=== PATIENT | female | born 1965 | race African-American/Black ===

== ENCOUNTER 2017-01-21 16:55 | Observation (INO) | payer OTHER ==
[2017-01-21 17:25] LABS: #Eosinphils 0.1 thou/uL (0.0-0.7); #Lymphocytes 2.8 thou/uL (1.20-3.40); #Monocytes 0.4 thou/uL (0.11-0.59); #Neutrophils 3.3 thou/uL (1.40-6.50); %Basophils 0.2 % (0.0-1.0); %Eosinophils 1.4 % (0.0-10.0); %Lymphocytes 42.3 % (21.0-51.0); %Monocytes 6.3 % (0.0-10.0); Mean Platelet Volume 7.7 fL (7.4-10.4); Red Blood Cell (RBC) Count 4.27 mill/uL (4.20-5.40); White Blood Cell (WBC) Count 6.7 thou/uL (4.8-10.8)
[2017-01-21 17:47] LABS: ALT (SGPT) 33 U/L (8-55); AST (SGOT) 19 U/L (5-34); Alkaline Phosphatase 92 U/L (40-150); Anion Gap 10 mmol/L (10-20); BUN (Urea Nitrogen) 22 mg/dL (9.8-20.1); Bilirubin, Total 0.2 mg/dL (0.2-1.2); CK (CPK) 124 U/L (29-168); Calc. Creatinine Clearance 0 mL/min (70-130); Calcium 9.7 mg/dL (7.8-10.44); Carbon Dioxide 21 mmol/L (22-29); Chloride 111 mmol/L (98-107); Estimated GFR-MDRD 82; Globulin 3.7 g/dL (2.4-3.5); Lipase 25 U/L (8-78)
[2017-01-21 17:52] LABS: Troponin I Less than 0.010 ng/mL (< 0.028)
[2017-01-21 18:02] LABS: PTT 38.9 SEC (22.9-36.1); Prothrombin Time 13.2 SEC (12.0-14.7)
[2017-01-21] MEDS ORDERED: Morphine 4 MG/ML Carpuject ONE (18:18)
[2017-01-21] MEDS ORDERED: Ondansetron HCl/PF 4 MG/2 ML Vial ONE (18:18)
--- NOTE | 2017-01-21 18:52 | RAD ---
FRONTAL VIEW CHEST 01/21/17 COMPARISON: 06/09/16 INDICATION: Chest pain. FINDINGS: There is patchy density of the lower lung zones bilaterally. Patient is rotated. There is accentuati on of the cardiomediastinal silhouette. There is minimal blunting at each costophrenic sulcus. The c hest is otherwise grossly stable. IMPRESSION: Findings to indicate mild degree of edema related to CHF. Trace pleural fluid not excluded. POS: [facility]
[2017-01-21 21:16] LABS: Troponin I Less than 0.010 ng/mL (< 0.028)
[2017-01-21] MEDS ORDERED: Acetaminophen 325 MG TAB PO PRN (22:00)
[2017-01-21] MEDS ORDERED: Ondansetron HCl/PF 4 MG/2 ML Vial IVP PRN (22:00)
[2017-01-21] MEDS ORDERED: Ondansetron ODT 4 MG TAB SL PRN (22:00)
[2017-01-21] MEDS ORDERED: HYDROcodone/Acetaminophen 5/325 mg Tablet PO PRN ×2 (22:00)
[2017-01-21 22:06] VITALS: BMI 42.4
[2017-01-22 00:02] LABS: Troponin I Less than 0.010 ng/mL (< 0.028)
[2017-01-22] MEDS ORDERED: ALPRAZolam 0.25 MG TAB PO PRN (11:34)
[2017-01-22] MEDS ORDERED: Ondansetron ODT 4 MG TAB PO PRN (11:34)
[2017-01-22] MEDS ORDERED: hydrALAZINE 20 MG/ML VIAL SLOW IVP PRN (11:34)
[2017-01-22] MEDS ORDERED: Acetaminophen 500 MG TAB PO PRN (11:34)
[2017-01-22] MEDS ORDERED: Cyclobenzaprine 10 MG TAB PO SCH (11:34)
[2017-01-22] MEDS ORDERED: Ondansetron HCl/PF 4 MG/2 ML Vial IVP PRN (11:34)
[2017-01-22] MEDS ORDERED: cloNIDine 0.1 MG TAB PO PRN (11:34)
[2017-01-22] MEDS ORDERED: traMADol HCl 50 MG TAB PO PRN (11:45)
[2017-01-22 12:21] VITALS: BP 123/71; TEMP 98.3
--- NOTE | 2017-01-22 12:35 | HP ---
DATE OF ADMISSION: 01/22/2017 PRIMARY CARE PHYSICIAN: Dr. Selvin Sewell. CHIEF COMPLAINT: Left upper chest wall pain. HISTORY OF PRESENT ILLNESS: This is a 51-year-old -[place] female, who presents to [facility] complaining of 1-2 day history of sharp left upper chest wall pain over he r pacemaker site. The patient states she underwent pacemaker placement in 2014 for second-degree he art block. The patient states she has had intermittent pain in the left upper chest wall over the p acemaker site since placement. Patient denies any fever, chills, fluctuance, drainage from the pace maker site. The patient denied any specific direct trauma, but states she has been sleeping on her left side mainly, as this is her most comfortable position and has noted pain in the shoulder and pa cemaker area. The patient states she has been compliant with her chronic medication regimen, but de nied specific fever, chills, increased cough, congestion, or recent pneumonia. Patient does admit t o some dyspnea on exertion and states she sleeps on approximately 8 pillows every night. The patien t denied any specific increase in lower extremity swelling, but has had some night sweats. The tyler ent states there is some radiation of the pain down her left arm into the hand when she experiences the pain, but denied any specific left arm edema or discoloration. Patient underwent cardiac cathet erization in 2014, prior to pacemaker insertion, showing essentially negative findings. In the [facility] room, the patient underwent general evaluation including chest imaging showing no acute proces s. Screening metabolic survey was essentially unrevealing with negative troponins x3 and a BNP of l ess than 10. The patient received IV morphine sulfate and Zofran and was referred to the observatio n unit. PAST MEDICAL HISTORY: 1. Second-degree atrioventricular block, status post pacemaker placement. 2. Hypertension. 3. Anxiety disorder. 4. Chronic obstructive pulmonary disease. 5. History of left-sided chest wall pain. 6. Diabetes mellitus type 2, insulin requiring. 7. Chronic back pain. 8. Seizure disorder. 9. Chronic headaches. 10. Depression. PAST SURGICAL HISTORY: 1. Status post pacemaker placement in 2014. 2. Status post hysterectomy. 3. Status post right wrist surgery. CURRENT MEDICATIONS: 1. Alprazolam 1 mg p.o. t.i.d. p.r.n. 2. Advair Diskus 1 puff inhaled b.i.d. 3. Humalog t.i.d. with meals. 4. Levemir 45 units subcutaneously b.i.d. 5. DuoNeb 3 mL nebulized q.6 hours p.r.n. 6. Cozaar 25 mg 1 tab p.o. daily. 7. Protonix 40 mg 1 tab p.o. daily. 8. Topamax 100 mg p.o. b.i.d. 9. Ambien 10 mg p.o. at bedtime. 10. Glucotrol 10 mg p.o. daily. ALLERGIES: 1. ASPIRIN causing nosebleeds. 2. CARBAMAZEPINE. 3. IBUPROFEN. 4. PROPOXYPHENE. FAMILY HISTORY: Positive for seizure disorder in her sister. SOCIAL HISTORY: The patient resides in the [facility]. Accompanied by her sister in the [facility]. Formerly used tobacco products. No alcohol or illicit drug use. REVIEW OF SYSTEMS: The following complete review of systems was negative, unless otherwise mentione d in the HPI or below: Constitutional: Weight loss or gain, ability to conduct usual activities. Skin: Rash, itching. Eyes: Double vision, pain. ENT/Mouth: Nose bleeding, neck stiffness, pain, tenderness. Cardiovascular: Palpitations, dyspnea on exertion, orthopnea. Respiratory: Shortne ss of breath, wheezing, cough, hemoptysis, fever or night sweats. Gastrointestinal: Poor appetite, abdominal pain, heartburn, nausea, vomiting, constipation, or diarrhea. Genitourinary: Urgency, f requency, dysuria, nocturia. Musculoskeletal: Pain, swelling. Neurologic/Psychiatric: Anxiety, d epression. Allergy/Immunologic: Skin rash, bleeding tendency. PHYSICAL EXAMINATION: VITAL SIGNS: On admission, blood pressure 120/65, pulse 89, respiratory rate is 20, temperature 98. 2 degrees Fahrenheit, O2 saturation 95% on room air. GENERAL APPEARANCE: This is a 51-year-old -[place] female, somewhat tearful, responsive, in mild distress. HEENT EXAM: Pupils are equal, round, and reactive to light and accommodation. Extraocular muscles are intact. No scleral icterus, mild conjunctival injection. Nares patent. OP is clear. Teeth in fair repair. Several missing teeth noted. NECK: Supple, no cervical adenopathy, no thyromegaly, no carotid bruits, no JVD appreciated. Cervi joselito spine with full active and passive range of motion. No meningeal signs appreciated. CHEST: Lungs are clear to auscultation bilaterally. CARDIOVASCULAR EXAM: S1, S2, without noted murmur. Left upper chest wall with pacemaker device in place. Positive tenderness to palpation over the pacemaker site and peripherally into the subclavia n region. No fluctuance noted. No expressible discharge. ABDOMEN: Obese, soft, nontender, nondistended. Bowel sounds are positive in all 4 quadrants. Ther e is no hepatosplenomegaly, no abdominal bruits, no rebound or guarding appreciated. EXTREMITIES: Warm and dry with fair turgor. No clubbing, cyanosis, or asymmetric edema appreciated . Pulses palpable distally at the dorsalis pedis, posterior tibial, and popliteal arteries bilatera lly. Capillary refill less than 2 seconds. NEUROLOGIC EXAM: Cranial nerves II-XII are grossly intact. No focal or lateralizing signs apprecia yohana. PERTINENT LABORATORY AND X-RAY FINDINGS: Basic metabolic profile within normal limits. Glucose 151 . Calcium 9.7. LFTs within normal limits. Troponin I negative x3. BNP less than 10. Albumin 4.3 , lipase 25. CBC within normal limits. PT 13.2, INR 1.0, PTT 38.9. Portable chest x-ray dated 10/2016 showed no acute cardiopulmonary process. EKG dated 01/21/2017 by my interpretation shows si nus mechanism with heart rates in the 70s. Normal R-wave progression noted in the precordial leads. Normal axis. No acute ST-T wave changes appreciated. ASSESSMENT AND PLAN: 1. Chest wall pain. Suspect musculoskeletal origin pain, given patient's reproducible symptoms on clinical exam. Trial of tramadol 50 mg p.o. q.6 hours p.r.n. with additional Flexeril 10 mg p.o. x1 dose now. Education and reassurance given. No current evidence to suggest acute coronary syndrome . 2. Hypertension. We will resume home antihypertensive regimen and monitor clinical response. 3. Diabetes mellitus type 2, insulin requiring. Resume home Levemir 45 units subcutaneously b.i.d. ADA diet. Resume Glucotrol 10 mg p.o. daily. 4. Anxiety/depression. Resume home regimen to include Xanax 1 mg p.o. t.i.d. p.r.n. 5. Prophylaxis. Sequential compression devices while in bed. Protonix 40 mg p.o. daily. 6. Code status is FULL. Surrogate medical decision maker is patient's sister.
--- NOTE | 2017-01-22 16:55 | DIS ---
DATE OF ADMISSION: 01/22/2017 DATE OF DISCHARGE: 01/22/2017 DISCHARGE DIAGNOSES: 1. Left upper chest wall pain at pacemaker site. 2. Myalgia secondary to left upper chest wall pain at pacemaker site. 3. Second-degree atrioventricular block status post pacemaker placement, stable. 4. Hypertension, stable. 5. Anxiety disorder. 6. Diabetes mellitus type 2, insulin requiring. 7. Seizure disorder, stable. CONSULTATIONS: None. PERTINENT LABORATORY AND X-RAY FINDINGS: Complete metabolic profile within normal limits. Troponin I negative x3. BNP less than 10. CBC within normal limits. Portable chest x-ray dated 01/21/2017 showed no acute cardiopulmonary process. HOSPITAL COURSE: The patient was observed after presenting with left upper chest wall pain, reprodu cible on clinical exam at the site of pacemaker insertion. The patient was treated supportively for myalgias and pain at the site stated previously with acetaminophen and Flexeril. The patient had c omplete resolution of her symptoms, remaining clinically stable during the hospital course. The pat ient was given education and reassurance regarding the condition and symptomatic and supportive tariq ures that can be used at home. Overall, the patient remained clinically stable with telemetry monit oring showing intermittent pacing and sinus mechanism. The patient is stable and ready for discharg e on 01/22/2017. DISCHARGE MEDICATIONS: 1. Xanax 1 mg p.o. t.i.d. p.r.n. 2. Flexeril 5 mg 1 tab p.o. t.i.d. p.r.n. muscle spasm. 3. Advair Diskus 1 puff inhaled b.i.d. 4. Humalog t.i.d. with meals. 5. Levemir 45 units subcutaneously b.i.d. 6. DuoNeb 3 mL nebulized q.6 hours p.r.n. 7. Cozaar 25 mg p.o. daily. 8. Protonix 40 mg 1 tab p.o. daily. 9. Topamax 100 mg 1 tab p.o. b.i.d. 10. Ambien 10 mg p.o. at bedtime. 11. Glipizide 10 mg p.o. daily. FOLLOWUP: The patient will follow up with her primary care provider, Dr. Sarai Chand within 7 d ays of discharge. CONDITION ON DISCHARGE: Stable. ACTIVITY: Ad brigido. DIET: Heart healthy and ADA. CODE STATUS: Full. DISPOSITION: Home, 01/22/2017.
[2017-01-22] MEDS ORDERED: Mometasone/Formoterol 120 PUFF INHALER INH SCH (18:30)
[2017-01-22] MEDS ORDERED: Zolpidem Tartrate 5 MG TAB PO SCH (21:00)
[2017-01-22] MEDS ORDERED: Famotidine 20 MG TAB PO SCH (21:00)
[2017-01-22] MEDS ORDERED: Topiramate 25 MG TAB PO SCH (21:00)
[2017-01-22] MEDS ORDERED: Insulin Detemir 100 UNITS/ML 45 UNITS in Pre-Filled Syringe 1 EACH SC SCH (21:00)
[2017-01-23] MEDS ORDERED: glipiZIDE 10 MG TAB PO SCH (07:30)
[2017-01-23] MEDS ORDERED: Losartan Potassium 25 MG TAB PO SCH (09:00)
== END 2017-01-22 15:53 | disposition home or self-care (01) ==
LOC: ERS 16:55 → 2SW 21:41
PROVIDERS: ADMIT Internal Medicine; ATTEND Internal Medicine
DX: T82.847A Pain due to cardiac prosthetic devices, implants and grafts, initial encounter (principal); M79.1 Myalgia; I44.1 Atrioventricular block, second degree; I10 Essential (primary) hypertension; F41.9 Anxiety disorder, unspecified; E11.9 Type 2 diabetes mellitus without complications; G40.909 Epilepsy, unspecified, not intractable, without status epilepticus; J44.9 Chronic obstructive pulmonary disease, unspecified; G89.29 Other chronic pain; M54.9 Dorsalgia, unspecified; R51 Headache; F32.9 Major depressive disorder, single episode, unspecified; Z79.51 Long term (current) use of inhaled steroids; Z79.4 Long term (current) use of insulin; Z79.899 Other long term (current) drug therapy; Z88.6 Allergy status to analgesic agent; Z88.8 Allergy status to other drugs, medicaments and biological substances; Z95.0 Presence of cardiac pacemaker; Z90.710 Acquired absence of both cervix and uterus; Z98.890 Other specified postprocedural states; Z87.891 Personal history of nicotine dependence
CPT/HCPCS: 36415; 36416; 71010; 80053; 82550; 82553; 83690; 83880; 84484; 85025; 85610; 85730; 93005; 94760; 96374; 96375; G0378; J1815; J2270; J2405

== ENCOUNTER 2017-02-14 07:28 | Emergency (ER) | payer OTHER | END 2017-02-14 08:01 | disposition home or self-care (01) | LOC: ERS 07:28 | DX: J06.9 Acute upper respiratory infection, unspecified (principal); E78.5 Hyperlipidemia, unspecified; J44.9 Chronic obstructive pulmonary disease, unspecified; I11.0 Hypertensive heart disease with heart failure; I50.9 Heart failure, unspecified; E11.9 Type 2 diabetes mellitus without complications; F41.9 Anxiety disorder, unspecified; F32.9 Major depressive disorder, single episode, unspecified; Z87.891 Personal history of nicotine dependence; Z79.4 Long term (current) use of insulin; Z79.899 Other long term (current) drug therapy | CPT/HCPCS: 99283 ==

== ENCOUNTER 2017-04-24 08:28 | Outpatient (CLI) | payer OTHER | END 2017-04-24 08:29 | disposition home or self-care (01) | LOC: BICMAMMO 08:28 | PROVIDERS: ATTEND Family Medicine | DX: Z12.31 Encounter for screening mammogram for malignant neoplasm of breast (principal); Z80.3 Family history of malignant neoplasm of breast | CPT/HCPCS: 77067 ==

== ENCOUNTER 2017-05-29 09:13 | Emergency (ER) | payer OTHER ==
[2017-05-29] MEDS ORDERED: diphenhydrAMINE 50 MG/ML VIAL ONE (10:07)
[2017-05-29] MEDS ORDERED: Metoclopramide HCl 10 MG/2 ML VIAL ONE (10:07)
== END 2017-05-29 12:26 | disposition home or self-care (01) ==
LOC: ERS 09:13
DX: R51 Headache (principal); E78.5 Hyperlipidemia, unspecified; J44.9 Chronic obstructive pulmonary disease, unspecified; I50.9 Heart failure, unspecified; E11.9 Type 2 diabetes mellitus without complications; I11.0 Hypertensive heart disease with heart failure; F41.9 Anxiety disorder, unspecified; F32.9 Major depressive disorder, single episode, unspecified; Z87.891 Personal history of nicotine dependence; Z79.899 Other long term (current) drug therapy
CPT/HCPCS: 96361; 96374; 96375; J1200; J2765

== ENCOUNTER 2018-02-10 09:34 | Emergency (ER) | payer OTHER ==
--- NOTE | 2018-02-10 10:36 | RAD ---
TWO VIEW CHEST: HISTORY: Chest pain. COMPARISON: 01/21/2017. FINDINGS: Lungs appear clear of infiltrate. Heart size upper normal with transvenous pacemaker leads. Vascula r markings upper normal but stable. No effusion. IMPRESSION: No evidence of acute process. POS: H
[2018-02-10] MEDS ORDERED: predniSONE 20 MG TAB ONE (12:13)
[2018-02-10 12:16] LABS: #Eosinphils 0.2 thou/uL (0.0-0.7); #Lymphocytes 2.6 thou/uL (1.20-3.40); #Monocytes 0.4 thou/uL (0.11-0.59); #Neutrophils 2.4 thou/uL (1.40-6.50); %Basophils 0.4 % (0.0-1.0); %Eosinophils 3.5 % (0.0-10.0); %Lymphocytes 46.4 % (21.0-51.0); %Monocytes 7.3 % (0.0-10.0); %Neutrophils 42.4 % (42.0-75.0); Hemoglobin 13.3 g/dL (12.0-16.0); Mean Corpuscular HGB CONC 33.1 g/dL (32.0-36.0); Mean Corpuscular Hemoglobin 29.4 pg (27.0-31.0); Mean Corpuscular Volume 88.8 fL (78.0-98.0); Platelet Count 229 thou/uL (130-400); RBC Distribution Width 12.2 % (11.5-14.5); Red Blood Cell (RBC) Count 4.53 mill/uL (4.20-5.40); White Blood Cell (WBC) Count 5.6 thou/uL (4.8-10.8)
[2018-02-10 12:38] LABS: ALT (SGPT) 37 U/L (8-55); AST (SGOT) 17 U/L (5-34); Albumin 4.2 g/dL (3.5-5.0); Alkaline Phosphatase 108 U/L (40-150); Anion Gap 10 mmol/L (10-20); BUN (Urea Nitrogen) 19 mg/dL (9.8-20.1); Bilirubin, Total 0.4 mg/dL (0.2-1.2); Calc. Creatinine Clearance 0 mL/min (70-130); Calcium 9.2 mg/dL (7.8-10.44); Carbon Dioxide 25 mmol/L (22-29); Chloride 108 mmol/L (98-107); Estimated GFR-MDRD 79; Globulin 3.9 g/dL (2.4-3.5); Glucose 162 mg/dL (70-105); Potassium 3.4 mmol/L (3.5-5.1); Protein, Total 8.1 g/dL (6.0-8.3); Sodium 140 mmol/L (136-145)
[2018-02-10 12:42] LABS: CKMB 0.9 ng/mL (0-6.6); Troponin I Less than 0.010 ng/mL (< 0.028)
== END 2018-02-10 13:06 | disposition home or self-care (01) ==
LOC: ERS 09:34
DX: J45.901 Unspecified asthma with (acute) exacerbation (principal); E78.5 Hyperlipidemia, unspecified; J44.9 Chronic obstructive pulmonary disease, unspecified; I11.0 Hypertensive heart disease with heart failure; I50.9 Heart failure, unspecified; E11.9 Type 2 diabetes mellitus without complications; Z79.4 Long term (current) use of insulin; Z86.73 Personal history of transient ischemic attack (TIA), and cerebral infarction without residual deficits; F41.9 Anxiety disorder, unspecified; F32.9 Major depressive disorder, single episode, unspecified; Z87.891 Personal history of nicotine dependence
CPT/HCPCS: 36415; 36416; 71046; 80053; 82553; 83880; 84484; 85025; 87081; 87430; 87804; 93005; 94640; J7506; J7620

== ENCOUNTER 2018-03-08 18:12 | Emergency (ER) | payer OTHER ==
[2018-03-08 18:54] LABS: Bilirubin Negative (Negative); Blood, Urine Negative (Negative); Clarity CLEAR (Clear); Glucose, Urine (Dipstick) >=1000 mg/dL (Negative); Leukocyte Negative (Negative); Nitrite Negative (Negative); Protein, Urine (Dipstick) Negative (Neg-Trace); Specific Gravity, Urine 1.037 (1.002-1.036); Urobilinogen 0.2 mg/dL (0.2-1.0)
[2018-03-08 18:58] LABS: #Basophils 0.1 thou/uL (0.0-0.2); #Eosinphils 0.2 thou/uL (0.0-0.7); #Lymphocytes 2.4 thou/uL (1.20-3.40); #Monocytes 0.4 thou/uL (0.11-0.59); #Neutrophils 1.9 thou/uL (1.40-6.50); %Basophils 1.4 % (0.0-1.0); %Eosinophils 3.7 % (0.0-10.0); %Lymphocytes 48.5 % (21.0-51.0); %Monocytes 7.2 % (0.0-10.0); %Neutrophils 39.2 % (42.0-75.0); Hemoglobin 13.5 g/dL (12.0-16.0); Mean Corpuscular HGB CONC 32.4 g/dL (32.0-36.0); Mean Corpuscular Volume 89.5 fL (78.0-98.0); Mean Platelet Volume 8.9 fL (7.4-10.4); Platelet Count 193 thou/uL (130-400); RBC Distribution Width 12.2 % (11.5-14.5); Red Blood Cell (RBC) Count 4.67 mill/uL (4.20-5.40)
[2018-03-08 19:20] LABS: ALT (SGPT) 34 U/L (8-55); AST (SGOT) 17 U/L (5-34); Albumin 4.3 g/dL (3.5-5.0); Alkaline Phosphatase 152 U/L (40-150); Anion Gap 15 mmol/L (10-20); BUN (Urea Nitrogen) 16 mg/dL (9.8-20.1); Bilirubin, Total 0.3 mg/dL (0.2-1.2); Calc. Creatinine Clearance 0 mL/min (70-130); Calcium 9.5 mg/dL (7.8-10.44); Carbon Dioxide 18 mmol/L (22-29); Chloride 106 mmol/L (98-107); Estimated GFR-MDRD 76; Globulin 3.3 g/dL (2.4-3.5); Glucose 391 mg/dL (70-105); Potassium 3.8 mmol/L (3.5-5.1); Protein, Total 7.6 g/dL (6.0-8.3); Sodium 135 mmol/L (136-145)
[2018-03-08] MEDS ORDERED: Metoclopramide HCl 10 MG/2 ML VIAL ONE (19:21)
[2018-03-08] MEDS ORDERED: diphenhydrAMINE 50 MG/ML VIAL ONE (19:21)
--- NOTE | 2018-03-08 19:50 | RAD ---
SINGLE VIEW OF THE CHEST: Comparison: 01-21-17 History: Hypoglycemia. Headache. Vomiting. FINDINGS: Single view of the chest shows an enlarged but stable cardiomediastinal silhouette. The pacemaker is unchanged in position. There is no evidence of consolidation, mass, or pleural effusion. Degenerative changes are seen in the spine. IMPRESSION: No evidence of acute cardiopulmonary disease. POS: [facility]
--- NOTE | 2018-03-08 20:07 | CT ---
CT BRAIN WITHOUT CONTRAST: Comparison: 08-18-14 History: Headache, dizziness. Technique: Multiple contiguous axial images were obtained in a CT of the brain without contrast. FINDINGS: The brain is normal in morphology and attenuation without focal lesions or confluent areas of infarct ion. There is no evidence of hydrocephalus, intracranial hemorrhage, or extraaxial fluid collections. The calvarium and overlying soft tissues are unremarkable. The visualized paranasal sinuses and masto id air cells are well aerated. IMPRESSION: No evidence of acute intracranial abnormality. POS: [facility]
== END 2018-03-08 20:57 | disposition home or self-care (01) ==
LOC: ERS 18:12
DX: E11.65 Type 2 diabetes mellitus with hyperglycemia (principal); G43.909 Migraine, unspecified, not intractable, without status migrainosus; I11.0 Hypertensive heart disease with heart failure; E78.5 Hyperlipidemia, unspecified; I50.9 Heart failure, unspecified; F32.9 Major depressive disorder, single episode, unspecified; F41.9 Anxiety disorder, unspecified; J44.9 Chronic obstructive pulmonary disease, unspecified; Z86.73 Personal history of transient ischemic attack (TIA), and cerebral infarction without residual deficits; Z79.4 Long term (current) use of insulin; Z87.891 Personal history of nicotine dependence
CPT/HCPCS: 36415; 36416; 70450; 71045; 80053; 81003; 82010; 84484; 85025; 96361; 96365; 96375; J1200; J2765

== ENCOUNTER 2018-04-23 08:53 | Observation (INO) | payer OTHER ==
[2018-04-23] MEDS ORDERED: Ondansetron PF 4 MG/2 ML Vial ONE (09:07)
[2018-04-23] MEDS ORDERED: Morphine 4 MG/ML VIAL ONE (09:07)
[2018-04-23 10:09] LABS: #Eosinphils 0.1 thou/uL (0.0-0.7); #Lymphocytes 1.9 thou/uL (1.20-3.40); #Monocytes 0.3 thou/uL (0.11-0.59); #Neutrophils 2.3 thou/uL (1.40-6.50); %Basophils 0.4 % (0.0-1.0); %Eosinophils 2.5 % (0.0-10.0); %Lymphocytes 41.7 % (21.0-51.0); %Monocytes 5.5 % (0.0-10.0); %Neutrophils 49.8 % (42.0-75.0); Hemoglobin 14.7 g/dL (12.0-16.0); Mean Corpuscular HGB CONC 31.7 g/dL (32.0-36.0); Mean Corpuscular Hemoglobin 28.8 pg (27.0-31.0); Mean Corpuscular Volume 90.9 fL (78.0-98.0); Mean Platelet Volume 9.3 fL (7.4-10.4); Platelet Count 206 thou/uL (130-400); RBC Distribution Width 12.3 % (11.5-14.5); Red Blood Cell (RBC) Count 5.11 mill/uL (4.20-5.40); White Blood Cell (WBC) Count 4.6 thou/uL (4.8-10.8)
--- NOTE | 2018-04-23 10:13 | RAD ---
PORTABLE CHEST: Date: 04/23/18 PROVIDED CLINICAL HISTORY: Chest pain. FINDINGS: Comparison with 02/26/18. Cardiac silhouette appears enlarged, which may be at least partially on the basis of portable techniq ue. Left subclavian cardiac pacing device is noted with lead tips overlying expected locations of RA and RV. No focal consolidation, pleural fluid, or pneumothorax apparent. IMPRESSION: Cardiomegaly without evidence for an acute cardiopulmonary process. POS: [facility]
[2018-04-23 10:37] LABS: ALT (SGPT) 32 U/L (8-55); AST (SGOT) 26 U/L (5-34); Albumin 4.5 g/dL (3.5-5.0); Alkaline Phosphatase 135 U/L (40-150); Anion Gap 15 mmol/L (10-20); BUN (Urea Nitrogen) 15 mg/dL (9.8-20.1); Bilirubin, Total 0.4 mg/dL (0.2-1.2); CK (CPK) 110 U/L (29-168); Calc. Creatinine Clearance 0 mL/min (70-130); Carbon Dioxide 22 mmol/L (22-29); Chloride 105 mmol/L (98-107); Estimated GFR-MDRD 90; Glucose 242 mg/dL (70-105); Lipase 28 U/L (8-78); Protein, Total 8.5 g/dL (6.0-8.3); Sodium 137 mmol/L (136-145)
[2018-04-23 13:36] VITALS: BMI 43.6
[2018-04-23 13:40] LABS: Troponin I Less than 0.010 ng/mL (< 0.028)
[2018-04-23] MEDS ORDERED: Lidocaine 2% Viscous Solution 10 ML, Aluminum & Magnesium Hydroxide 30 ML SSW SCH (15:00)
--- NOTE | 2018-04-23 15:04 | HP ---
PRIMARY CARE PROVIDER: Dr. Sarai Chand. CHIEF COMPLAINT: Chest pain. HISTORY OF PRESENT ILLNESS: Ms. Murrell is a pleasant 52-year-old lady, who was seen at [facility] on April 23, 2018. She reports that she has had on and off left-sided chest pain in the past. She also reports pain in the abdomen. She reports that it was all over her abdomen and has been going on for a week. She is unable to characterize the pain further. In terms of the chest pain, she reports that it is sharp, stabbing, it woke her up from sleep around 2 a.m. today. It is radiating down her left arm. It is also accompanied by shortness of breath and headache. She denies any fevers. She denies any nausea or vomiting. She denies any diarrhea or constipation. She was offered aspirin by EMS and she refused aspirin because she is allergic to aspirin. In terms of the abdominal pain, she reports that it was initially over both lower quadrants and subsequently became diffuse. REVIEW OF SYSTEMS: All other systems reviewed and found to be negative. PAST MEDICAL HISTORY: Second degree AV block status post pacemaker placement, hypertension, anxiety disorder, chronic obstructive pulmonary disease, left- sided chest wall pain, insulin-requiring diabetes mellitus type 2, chronic back pain, seizure disorder, chronic headaches, and depression. SURGICAL HISTORY: Status post pacemaker placement in 2014, status post hysterectomy, status post right wrist surgery. ALLERGIES: 1. ASPIRIN CAUSING NOSEBLEEDS. 2. CARBAMAZEPINE. 3. IBUPROFEN. 4. PROPOXYPHENE. CURRENT MEDICATIONS: These need to be clarified, but appeared to include; 1. Xanax 1 mg three times a day as needed. 2. Advair HFA one puff 2 times a day. 3. Glucotrol 10 mg daily. 4. Humalog insulin as needed. 5. Levemir 45 units two times a day. 6. Cozaar 25 mg daily. 7. Protonix 40 mg daily. 8. Ambien 10 mg at bedtime. 9. Cyclobenzaprine 5 mg three times a day as needed. 10. DuoNebs p.r.n. 11. Topamax 100 mg 2 times a day. FAMILY HISTORY: Significant for myocardial infarction in her mother. SOCIAL HISTORY: The patient is an ex-smoker. She denies alcohol use or recreational drug use. PHYSICAL EXAMINATION: GENERAL: On examination, Ms. Murrell is awake and alert, in mild distress. She is morbidly obese, with a BMI of 43.6. VITAL SIGNS: Blood pressure is 116/56, pulse 83, respiratory rate 20, and oxygen saturation 95% on room air. She is afebrile. EYES: No scleral icterus, no conjunctival pallor. ENT: Moist mucosal membranes. No oropharyngeal erythema or exudates. NECK: Supple, nontender, trachea is midline. RESPIRATORY: Accessory muscles of breathing are not active. Chest wall movements are symmetric bilaterally. LUNGS: Clear to auscultation without wheeze, rhonchi, or crepitations. She has mild reproducible left chest wall tenderness. CARDIOVASCULAR: S1 and S2 are heard, regular. Peripheral pulses palpable. No carotid bruit. No pericardial rub. ABDOMEN: Distended, mild diffuse tenderness, no guarding or rigidity. Bowel sounds are heard, no hepatomegaly, no splenomegaly. NEUROLOGIC: Cranial nerves 2 through 12 are intact, deep tendon reflexes 2+. MUSCULOSKELETAL: Power is 5/5 in all four extremities. SKIN: No rashes or subcutaneous nodules. LYMPHATIC: No cervical lymphadenopathy. PSYCHIATRIC: Normal mood, normal affect, the patient is oriented to person, place, and time. LABORATORY DATA: Ms. Murrell's labs and investigations were reviewed. I reviewed her electrocardiogram, which shows sinus rhythm, no ST changes to suggest an acute coronary syndrome. I also reviewed her chest x-ray, which does not show any pulmonary infiltrates. She has leukopenia with 4600 white cells, normal hemoglobin, normal platelet count, normal electrolytes, normal creatinine, and an unremarkable liver profile. Lipase is normal. Troponin I is normal x2. BNP is less than 10. ASSESSMENT AND PLAN: Ms. Murrell is a pleasant 52-year-old lady who was seen at [facility] on April 23, 2018. Her problem list includes: 1. Chest pain: Ms. Murrell is presenting with chest pain. Initial troponins are negative. Given her cardiac history, the patient will be admitted to the hospital for further investigations including telemetry monitoring and stress test. Further clinical course depending on test results. 2. Abdominal pain: The patient reports abdominal pain that has been going on for the last week. Labs have been unremarkable. We will initiate workup with abdominal x-rays. 3. Diabetes mellitus, type 2: We will start Accu-Cheks and insulin sliding scale. 4. Hypertension: We will monitor the patient's vital signs and titrate antihypertensives as needed. 5. We will interrogate the pacemaker. Many thanks for allowing me to participate in your patient's care. Please feel free to contact me with any questions or concerns. LEVEL OF RISK: High. LEVEL OF COMPLEXITY: High. Job ID: [id number] MTDD
[2018-04-23] MEDS ORDERED: Ondansetron PF 4 MG/2 ML Vial IVP PRN (15:19)
[2018-04-23] MEDS ORDERED: Senokot S 8.6-50 MG TAB PO PRN (15:19)
[2018-04-23] MEDS ORDERED: Nitroglycerin 0.4 MG TAB (25 Tab Bottle) PO PRN (15:19)
[2018-04-23] MEDS ORDERED: Dextrose 50% Abboject 50 ML SYRINGE SLOW IVP PRN (15:19)
[2018-04-23] MEDS ORDERED: Dextrose 5% in Water 1,000 ML IV PRN (15:19)
[2018-04-23] MEDS: Morphine 2 MG/ML SYRINGE SLOW IVP PRN (15:26)
--- NOTE | 2018-04-23 17:14 | RAD ---
ABDOMEN TWO VIEW: 04/23/18 HISTORY: Abdominal pain . COMPARISON: Radiograph from 2009. FINDINGS: On the upright view there is no free air under the hemidiaphragms. No dilated loops of large or small bowel. No abnormal calcifications projecting over the renal shadows. Skeleton is unremarkable. IMPRESSION: No acute intra-abdominal abnormality. POS: [facility]
[2018-04-23 17:48] LABS: Troponin I Less than 0.010 ng/mL (< 0.028)
[2018-04-23] MEDS: Sodium Chloride 0.9% 1,000 ML IV SCH ×2 (18:00→22:16)
[2018-04-23] MEDS: HumaLOG 300 UNITS/3 ML VIAL SC PRN ×2 (18:13→21:13)
[2018-04-24] MEDS: Acetaminophen 325 MG TAB PO PRN ×2 (04:58→20:43)
[2018-04-24 05:06] LABS: #Basophils 0.1 thou/uL (0.0-0.2); #Eosinphils 0.1 thou/uL (0.0-0.7); #Lymphocytes 2.5 thou/uL (1.20-3.40); #Monocytes 0.4 thou/uL (0.11-0.59); #Neutrophils 1.9 thou/uL (1.40-6.50); %Basophils 1.2 % (0.0-1.0); %Eosinophils 2.3 % (0.0-10.0); %Lymphocytes 49.7 % (21.0-51.0); %Monocytes 8.3 % (0.0-10.0); %Neutrophils 38.4 % (42.0-75.0); Hemoglobin 13.4 g/dL (12.0-16.0); Mean Corpuscular HGB CONC 32.5 g/dL (32.0-36.0); Mean Corpuscular Hemoglobin 29.7 pg (27.0-31.0); Mean Corpuscular Volume 91.3 fL (78.0-98.0); Mean Platelet Volume 8.8 fL (7.4-10.4); Platelet Count 199 thou/uL (130-400); White Blood Cell (WBC) Count 5.1 thou/uL (4.8-10.8)
[2018-04-24 05:21] LABS: Anion Gap 13 mmol/L (10-20); BUN (Urea Nitrogen) 15 mg/dL (9.8-20.1); Calc. Creatinine Clearance 156 mL/min (70-130); Calcium 9.6 mg/dL (7.8-10.44); Carbon Dioxide 21 mmol/L (22-29); Chloride 106 mmol/L (98-107); Estimated GFR-MDRD Greater than 90; Glucose 146 mg/dL (70-105); Potassium 4.3 mmol/L (3.5-5.1); Sodium 136 mmol/L (136-145)
[2018-04-24] MEDS ORDERED: Regadenoson 0.4 MG/5 ML SYRINGE ONE (09:19)
--- NOTE | 2018-04-24 10:16 | NM ---
NUCLEAR MEDICINE CARDIAC PERFUSION EXAMINATION WITH EJECTION FRACTION: HISTORY: Chest pain. History of cardiac catheterization and 2nd degree AV block. TECHNIQUE: A 2-day nuclear medicine cardiac perfusion examination was performed. Rest images were obtained usin g 29.7 mCi of Technetium 99m sestamibi. Stress images were obtained using 32 mCi of Technetium 99m s estamibi and LexiScan. FINDINGS: Tomographic images show a medium-size, moderate-intensity reversible perfusion defect along the later al wall extending to the apex. Gated images show apical hypokinesis with an ejection fraction of 56%. EDV is 113 mL. LHR is 0.3. TID is 1.05. IMPRESSION: Lateral wall/apical ischemia. POS: [facility]
[2018-04-24] MEDS: Enoxaparin Sodium 40 MG/0.4 ML SYRINGE SC SCH (10:50)
[2018-04-24] MEDS: HumaLOG 300 UNITS/3 ML VIAL SC PRN ×2 (10:51→17:36)
[2018-04-24] MEDS: Morphine 2 MG/ML SYRINGE SLOW IVP PRN (10:54)
--- NOTE | 2018-04-24 14:13 | PDOC.PN ---
- Subjective Encounter Start Date: 04/24/18 Encounter Start Time: 07:40 Pt seen for followup re: chest pain. Feels better. - Objective MAR Reviewed: Yes Vital Signs & Weight: Vital Signs (12 hours) Temp Pulse Resp BP Pulse Ox 04/24/18 11:08 98.0 F 79 15 124/62 94 L 04/24/18 07:10 97.9 F 81 20 101/59 L 98 04/24/18 06:06 95 04/24/18 04:29 97.8 F 83 12 97/58 L 96 Weight Weight 257 lb 9.6 oz I&O: 04/23/18 04/24/18 04/25/18 06:59 06:59 06:59 Intake Total 1321 241 Output Total 1999 Balance -679 241 Result Diagrams: 04/24/18 04:28 04/24/18 04:28 Additional Labs: Accuchecks 04/24/18 04/23/18 04/23/18 10:11 20:33 17:13 POC Glucose 237 H 306 H 279 H EKG Reviewed by me: Yes (Tele: NSR) Phys Exam - Physical Examination Morbid obesity HEENT: moist MMs, sclera anicteric, oral pharynx no lesions, 2+ tonsils Neck: no nodes, no JVD, supple, full ROM Respiratory: clear to auscultation bilateral Cardiovascular: RRR, no rub S1, s2 Gastrointestinal: soft, non-tender, positive bowel sounds distended Neurological: moves all 4 limbs Psychiatric: normal affect, A&O x 3 Dx/Plan (1) Chest pain Code(s): R07.9 - CHEST PAIN, UNSPECIFIED Status: Acute Comment: abnormal stress test, consult cardiology, continue to monitor on telemetry (2) COPD (chronic obstructive pulmonary disease) Status: Chronic Qualifiers: COPD type: unspecified COPD Qualified Code(s): J44.9 - Chronic obstructive pulmonary disease, unspecified Comment: stable (3) Diabetes Code(s): E11.9 - TYPE 2 DIABETES MELLITUS WITHOUT COMPLICATIONS Status: Chronic Qualifiers: Diabetes mellitus complication status: with unspecified complications Comment: continue accuchecks, insulin sliding scale (4) Hypertension Code(s): I10 - ESSENTIAL (PRIMARY) HYPERTENSION Status: Chronic Qualifiers: Hypertension type: essential hypertension Qualified Code(s): I10 - Essential (primary) hypertension Comment: controlled - Plan * . Review of Systems - Review of Systems Constitutional: negative: fever, chills, sweats, weakness, malaise Respiratory: negative: Cough, Shortness of Breath, SOB with Excertion, Pleuritic Pain, Wheezing Cardiovascular: chest pain. negative: palpitations, orthopnea, paroxysmal nocturnal dyspnea, edema, light headedness Gastrointestinal: negative: Nausea, Vomiting, Abdominal Pain, Diarrhea, Constipation, Melena, Hematochezia Genitourinary: negative: Dysuria, Frequency, Incontinence, Hematuria, Retention Skin: negative: Rash, Lesions, Brennon, Bruising - Medications/Allergies Allergies/Adverse Reactions: Allergies Allergy/AdvReac Type Severity Reaction Status Date / Time aspirin Allergy Verified 04/23/18 15:40 carbamazepine [From Tegretol] Allergy "i take it Verified 04/23/18 15:40 , but i shake with it, mouth twitches" ibuprofen Allergy Verified 04/23/18 15:40 propoxyphene HCl Allergy Verified 04/23/18 15:40 [From Darvon] sertraline HCl [From Zoloft] Allergy Emesis Verified 04/23/18 15:40 tramadol Allergy Verified 04/23/18 15:40 Medications: Current Medications Acetaminophen (Tylenol) 650 mg PO Q4H PRN PRN Reason: Headache/Fever/Mild Pain (1-3) Last Admin: 04/24/18 04:58 Dose: 650 mg Dextrose/Water (Dextrose 50%) 25 gm SLOW IVP PRN PRN PRN Reason: Hypoglycemia Enoxaparin Sodium (Lovenox) 40 mg SC 0900 ADDISON Last Admin: 04/24/18 10:50 Dose: 40 mg Glucagon (Glucagon) 1 mg IM PRN PRN PRN Reason: Hypoglycemia Dextrose/Water (D5w) 1,000 mls @ 0 mls/hr IV .Q0M PRN PRN Reason: Hypoglycemia Insulin Human Lispro (Humalog) 0 units SC .MILD SLIDING SCALE PRN PRN Reason: Mild Correctional Scale Last Admin: 04/24/18 10:51 Dose: 3 unit Morphine Sulfate (Morphine) 2 mg SLOW IVP Q4H PRN PRN Reason: Pain Last Admin: 04/24/18 10:54 Dose: 2 mg Nitroglycerin (Nitrostat) 0.4 mg PO Q5MIN PRN PRN Reason: Chest Pain Ondansetron HCl (Zofran) 4 mg IVP Q6H PRN PRN Reason: Nausea/Vomiting Senna/Docusate Sodium (Senokot S) 2 tab PO BID PRN PRN Reason: Constipation Sodium Chloride (Flush - Normal Saline) 10 ml IVF Q12HR [facility] Last Admin: 04/24/18 10:51 Dose: 10 ml Sodium Chloride (Flush - Normal Saline) 10 ml IVF PRN PRN PRN Reason: Saline Flush
[2018-04-24] MEDS ORDERED: [UNRECOGNIZED DRUG - REMARK] FS SCH (21:45)
--- NOTE | 2018-04-24 22:42 | CON ---
DATE OF CONSULTATION: HISTORY OF PRESENT ILLNESS: Mell Murrell is a 52-year-old black female who is followed with Dr. Aguirre for several years. In March 2014, she presented with shortness of breath and asthma exacerbation. She was monitored and found to have Mobitz type II second degree AV block on the monitor. She was then seen by Cardiology and gave a history of multiple episodes of syncope, falling to the ground, unresponsive, and waking up on the ground. She underwent placement of a permanent pacemaker. She intermittently follows up with Dr. Aguirre and was last seen in April 2017. She now presents complaining of 4 days of chest discomfort. She describes it as a sharp stabbing pain in the lower part of her chest that seems only come on when she is up walking. The pain is pleuritic in nature and will last approximately 30 minutes. She had several of these episodes and decided to come to the emergency room for evaluation. She also was complaining of abdominal pain while being evaluated. Cardiolite has shown lateral wall and apical ischemia and Cardiology consultation is requested. PAST MEDICAL HISTORY: Hypertension, COPD, diabetes, chronic back pain, seizure disorder, depression. PAST SURGICAL HISTORY: Pacemaker placement in 2014, hysterectomy, right wrist surgery. HOME MEDICATIONS: 1. Xanax 2 mg t.i.d. p.r.n. 2. Cyclobenzaprine 5 mg t.i.d. 3. Glipizide 10 mg daily. 4. Humalog. 5. Levemir. 6. DuoNebs. 7. Levetiracetam 500 mg b.i.d. 8. Tradjenta 5 mg daily. 9. Claritin 10 mg daily. 10. Cozaar 50 mg daily. 11. Protonix 40 daily. 12. Ambien 10 mg at bedtime. 13. Zonegran 100 mg daily. ALLERGIES: 1. ASPIRIN (STATES CAUSES NOSEBLEED, DOES NOT APPEAR TO CAUSE A TRUE ALLERGIC REACTION). 2. TEGRETOL. 3. IBUPROFEN. 4. DARVON. 5. ZOLOFT. 6. TRAMADOL. SOCIAL HISTORY: She smoked in the past. She does not drink alcohol. REVIEW OF SYSTEMS: A 10-point review of systems is unremarkable except for the abdominal pain. PHYSICAL EXAMINATION: VITAL SIGNS: Blood pressure 129/78, pulse of 88. HEENT: PERRL. NECK: Supple. CHEST: Clear. CARDIAC: S1 and S2 normal without any S3, S4, or murmurs. ABDOMEN: Normal bowel sounds without tenderness or organomegaly. EXTREMITIES: Revealed no clubbing, cyanosis, or edema. NEUROLOGICAL: Grossly intact. SKIN: Warm and dry. MUSCULOSKELETAL: Revealed palpable chest wall tenderness. LABORATORY DATA: EKG revealed normal sinus rhythm, borderline voltage for LVH. Pacemaker was interrogated and she does have some episodes of atrial arrhythmias with 11 high rate episodes, 150 beats per minute on April 18. She has not had any over the last 4 days when she has had all of her symptoms. CBC is unremarkable. Sodium 136, potassium 4.3, chloride 106, carbon dioxide 21, BUN 15, and creatinine 0.78. Troponin I is unremarkable. Cardiolite revealed lateral and apical ischemia. IMPRESSION: 1. Atypical chest discomfort which is sharp in nature and pleuritic. She does have palpable tenderness in the area that seems to reproduce her pain. Lateral and apical ischemia on Cardiolite. 2. Status post pacemaker placement for Mobitz type II second degree AV block and multiple episodes of syncope. The pacemaker is functioning normally. 3. Hypertension. 4. Diabetes. 5. Chronic back pain. 6. Former smoker. 7. Obesity. PLAN: Situation discussed with the patient. It is recommended that she undergo cardiac catheterization with her abnormal Cardiolite. Risks of this were discussed including , myocardial infarction, dye reaction, vascular injury, CVA, transfusion, renal damage, limb loss, etc. Risks of stent placement discussed including , myocardial infarction, emergent CABG, restenosis, stent thrombosis, vessel perforation, etc. This will further be discussed with Dr. Aguirre when she returns. Job ID: [id number] [facility]
[2018-04-24] MEDS ORDERED: Zolpidem Tartrate 5 MG TAB PO PRN (23:08)
[2018-04-25 06:09] LABS: #Eosinphils 0.1 thou/uL (0.0-0.7); #Monocytes 0.4 thou/uL (0.11-0.59); #Neutrophils 2.2 thou/uL (1.40-6.50); %Basophils 0.3 % (0.0-1.0); %Eosinophils 2.9 % (0.0-10.0); %Lymphocytes 41.2 % (21.0-51.0); %Monocytes 9.4 % (0.0-10.0); %Neutrophils 46.2 % (42.0-75.0); Hemoglobin 12.9 g/dL (12.0-16.0); Mean Corpuscular HGB CONC 33.3 g/dL (32.0-36.0); Mean Corpuscular Hemoglobin 29.6 pg (27.0-31.0); Mean Corpuscular Volume 89.2 fL (78.0-98.0); Mean Platelet Volume 8.8 fL (7.4-10.4); Platelet Count 198 thou/uL (130-400); Red Blood Cell (RBC) Count 4.34 mill/uL (4.20-5.40); White Blood Cell (WBC) Count 4.7 thou/uL (4.8-10.8)
[2018-04-25] MEDS: HumaLOG 300 UNITS/3 ML VIAL SC PRN ×3 (06:19→17:05)
[2018-04-25 06:31] LABS: Anion Gap 13 mmol/L (10-20); BUN (Urea Nitrogen) 15 mg/dL (9.8-20.1); Calc. Creatinine Clearance 145 mL/min (70-130); Calcium 9.5 mg/dL (7.8-10.44); Carbon Dioxide 25 mmol/L (22-29); Chloride 103 mmol/L (98-107); Estimated GFR-MDRD 86; Glucose 283 mg/dL (70-105); Potassium 3.9 mmol/L (3.5-5.1); Sodium 137 mmol/L (136-145)
[2018-04-25] MEDS: Enoxaparin Sodium 40 MG/0.4 ML SYRINGE SC SCH (08:05)
[2018-04-25] MEDS: Acetaminophen 325 MG TAB PO PRN ×2 (10:39→20:10)
--- NOTE | 2018-04-25 13:23 | PDOC.PN ---
- Subjective Encounter Start Date: 04/25/18 Encounter Start Time: 07:40 Pt seen for followup re: chest pain. Has on and off chest pain, no other complaints. - Objective MAR Reviewed: Yes Vital Signs & Weight: Vital Signs (12 hours) Temp Pulse Resp BP BP Pulse Ox 04/25/18 11:27 98.1 F 84 20 131/66 96 04/25/18 08:00 98.3 F 86 16 129/68 96 04/25/18 06:15 96 04/25/18 05:13 98.2 F 89 18 120/69 96 Weight Weight 259 lb 4.8 oz I&O: 04/24/18 04/25/18 04/26/18 06:59 06:59 06:59 Intake Total 1321 1341 Output Total 1999 1599 Balance -679 -259 Result Diagrams: 04/25/18 05:39 04/25/18 05:39 Additional Labs: Accuchecks 04/25/18 04/25/18 04/24/18 11:33 05:17 20:48 POC Glucose 291 H 273 H 203 H 04/24/18 16:40 POC Glucose 279 H EKG Reviewed by me: Yes (Tele: NSR) Phys Exam - Physical Examination Morbid obesity HEENT: moist MMs Neck: supple Respiratory: clear to auscultation bilateral Cardiovascular: RRR Gastrointestinal: soft Neurological: moves all 4 limbs Psychiatric: normal affect Dx/Plan (1) Chest pain Code(s): R07.9 - CHEST PAIN, UNSPECIFIED Status: Acute Comment: pt will likely need cath (2) COPD (chronic obstructive pulmonary disease) Status: Chronic Qualifiers: COPD type: unspecified COPD Qualified Code(s): J44.9 - Chronic obstructive pulmonary disease, unspecified Comment: stable (3) Diabetes Code(s): E11.9 - TYPE 2 DIABETES MELLITUS WITHOUT COMPLICATIONS Status: Chronic Qualifiers: Diabetes mellitus complication status: with unspecified complications Comment: resume home diabetes meds (4) Hypertension Code(s): I10 - ESSENTIAL (PRIMARY) HYPERTENSION Status: Chronic Qualifiers: Hypertension type: essential hypertension Qualified Code(s): I10 - Essential (primary) hypertension Comment: controlled - Plan * . Review of Systems - Review of Systems Respiratory: negative: Cough, Shortness of Breath, SOB with Excertion, Pleuritic Pain, Wheezing Cardiovascular: chest pain. negative: palpitations, orthopnea, paroxysmal nocturnal dyspnea, edema, light headedness - Medications/Allergies Allergies/Adverse Reactions: Allergies Allergy/AdvReac Type Severity Reaction Status Date / Time aspirin Allergy Verified 04/23/18 15:40 carbamazepine [From Tegretol] Allergy "i take it Verified 04/23/18 15:40 , but i shake with it, mouth twitches" ibuprofen Allergy Verified 04/23/18 15:40 propoxyphene HCl Allergy Verified 04/23/18 15:40 [From Darvon] sertraline HCl [From Zoloft] Allergy Emesis Verified 04/23/18 15:40 tramadol Allergy Verified 04/23/18 15:40 Medications: Current Medications Acetaminophen (Tylenol) 650 mg PO Q4H PRN PRN Reason: Headache/Fever/Mild Pain (1-3) Last Admin: 04/25/18 10:39 Dose: 650 mg Dextrose/Water (Dextrose 50%) 25 gm SLOW IVP PRN PRN PRN Reason: Hypoglycemia Enoxaparin Sodium (Lovenox) 40 mg SC 0900 [facility] Stop: 04/25/18 23:59 Last Admin: 04/25/18 08:05 Dose: 40 mg Glucagon (Glucagon) 1 mg IM PRN PRN PRN Reason: Hypoglycemia Dextrose/Water (D5w) 1,000 mls @ 0 mls/hr IV .Q0M PRN PRN Reason: Hypoglycemia Sodium Chloride (Normal Saline 0.9%) 1,000 mls @ 100 mls/hr IV .Q10H [facility] Insulin Human Lispro (Humalog) 0 units SC .MILD SLIDING SCALE PRN PRN Reason: Mild Correctional Scale Last Admin: 04/25/18 12:06 Dose: 4 unit Miscellaneous Information (Communication Order-Pharmacy) 0 each FS ONE [facility] Stop: 04/25/18 23:59 Morphine Sulfate (Morphine) 2 mg SLOW IVP Q4H PRN PRN Reason: Pain Last Admin: 04/24/18 10:54 Dose: 2 mg Nitroglycerin (Nitrostat) 0.4 mg PO Q5MIN PRN PRN Reason: Chest Pain Ondansetron HCl (Zofran) 4 mg IVP Q6H PRN PRN Reason: Nausea/Vomiting Senna/Docusate Sodium (Senokot S) 2 tab PO BID PRN PRN Reason: Constipation Sodium Chloride (Flush - Normal Saline) 10 ml IVF Q12HR ADDISON Last Admin: 04/25/18 08:06 Dose: 10 ml Sodium Chloride (Flush - Normal Saline) 10 ml IVF PRN PRN PRN Reason: Saline Flush Zolpidem Tartrate (Ambien) 10 mg PO HSPRN PRN PRN Reason: Insomnia Last Admin: 04/24/18 23:41 Dose: 10 mg
[2018-04-25] MEDS ORDERED: ALPRAZolam 0.25 MG TAB PO PRN (13:24)
[2018-04-25] MEDS ORDERED: Cyclobenzaprine 10 MG TAB PO PRN (13:38)
[2018-04-25] MEDS: Mometasone/Formoterol 120 PUFF INHALER INH SCH (18:59)
[2018-04-25] MEDS: levETIRAcetam 500 MG TAB PO SCH (20:14)
[2018-04-25] MEDS ORDERED: Non-Formulary Item 1 EACH (Insulin Detemir 100 Units/Ml [Levemir] 45 UNIT) SQ SCH (21:00)
[2018-04-25] MEDS ORDERED: Zolpidem Tartrate 5 MG TAB PO SCH (21:00)
[2018-04-25] MEDS ORDERED: Insulin Glargine 45 UNITS in Pre-Filled Syringe 1 EACH SC SCH (21:00)
[2018-04-26 05:12] LABS: #Eosinphils 0.1 thou/uL (0.0-0.7); #Lymphocytes 1.8 thou/uL (1.20-3.40); #Monocytes 0.4 thou/uL (0.11-0.59); #Neutrophils 2.5 thou/uL (1.40-6.50); %Basophils 0.3 % (0.0-1.0); %Eosinophils 2.1 % (0.0-10.0); %Lymphocytes 37.9 % (21.0-51.0); %Monocytes 7.6 % (0.0-10.0); %Neutrophils 52.2 % (42.0-75.0); Mean Corpuscular HGB CONC 33.3 g/dL (32.0-36.0); Mean Corpuscular Hemoglobin 29.7 pg (27.0-31.0); Mean Corpuscular Volume 89.1 fL (78.0-98.0); Mean Platelet Volume 8.6 fL (7.4-10.4); Platelet Count 194 thou/uL (130-400); Red Blood Cell (RBC) Count 4.37 mill/uL (4.20-5.40); White Blood Cell (WBC) Count 4.7 thou/uL (4.8-10.8)
[2018-04-26 05:49] LABS: Anion Gap 13 mmol/L (10-20); BUN (Urea Nitrogen) 15 mg/dL (9.8-20.1); Calc. Creatinine Clearance 142 mL/min (70-130); Calcium 9.7 mg/dL (7.8-10.44); Carbon Dioxide 23 mmol/L (22-29); Cardiac Risk 3.8 (Less than 4.5); Chloride 104 mmol/L (98-107); Cholesterol 157 mg/dl (< 200 Desired); Estimated GFR-MDRD 84; Glucose 268 mg/dL (70-105); HDL Cholesterol 41 mg/dL (>60 Neg Risk); LDL Cholesterol, Calculated 88 mg/dL; Potassium 3.7 mmol/L (3.5-5.1); Sodium 136 mmol/L (136-145); Triglycerides 138 mg/dL (Less than 150)
[2018-04-26] MEDS ORDERED: Sodium Chloride 0.9% 1,000 ML IV SCH (06:00)
[2018-04-26] MEDS: levETIRAcetam 500 MG TAB PO SCH (06:27)
[2018-04-26] MEDS ORDERED: glipiZIDE 10 MG TAB PO SCH (07:30)
[2018-04-26] MEDS: Mometasone/Formoterol 120 PUFF INHALER INH SCH (07:39)
--- NOTE | 2018-04-26 08:58 | PDOC.CTH ---
Cardiology Progress Note - Subjective The pt seen and examined. No overnight events. No cardiac complaints. She cont. having mild sharp pain to Lt upper chest with movement. - Objective Vital Signs Temp Pulse Resp BP Pulse Ox 04/26/18 07:39 80 12 04/26/18 07:34 98.3 F 88 20 122/75 93 L 04/26/18 03:44 98 F 85 15 116/59 L 95 04/25/18 23:06 84 12 Weight 252 lb 3.2 oz 04/25/18 04/26/18 04/27/18 06:59 06:59 06:59 Intake Total 1341 1380 Output Total 1600 500 Balance -259 880 - Physical Examination General/Neuro: alert & oriented x3 Neck: no JVD present Lungs: CTA Heart: RRR Abdomen: soft Extremities: other: (No edema) - Telemetry Telemetry Rhythm: SR, AV paced - Labs Result Diagrams: 04/26/18 04:41 04/26/18 04:41 Troponin/CKMB Troponin I Less than 0.010 ng/mL (< 0.028) 04/23/18 17:13 - Assessment/Plan 1. Chest pain with abnormal stress test - Cath in 2014 showed normal coronary arteries. No Cath this time. Possible muscle pain. 2. HTN - stable 3. DM type 2 - managed by PCP; Clear liquid diet for this AM and NPO for cath this afternoon. 4. COPD - stable with RA 5. SZ - on Keppra; managed by PCP 6. Depression - stable 7. PM - PM interrogation by [employer] today. MAR reviewed * From Cardiac standpoint, the pt can be d/katie once her PM is interrogated and tested by [employer] RN. The pt will f/u with Dr Aguirre' office within 4 wks (on Thursday for PM check) pt. seen and eval. by me. I agree with the A/P by the EQUITY SALES ASSISTANT.The cardiac enzymes are neg., EKG-unremarkable, atypical chest pain, abnormal stress test, this was also abnormal prior to her last cardiac cath where she was found to have normal Cors. I feel this is noncardiac chest pain and she can be d/c'd to home. Review of Systems - Review of Systems Constitutional: reports: no symptoms reported EENTM: reports: no symptoms reported Respiratory: reports: no symptoms reported Cardiac (ROS): reports: no symptoms reported ABD/GI: reports: no symptoms reported : reports: no symptoms reported Musculoskeletal: reports: no symptoms reported
[2018-04-26] MEDS ORDERED: Zonisamide 100 MG CAP PO SCH (09:00)
[2018-04-26] MEDS ORDERED: Loratadine 10 MG TAB PO SCH (09:00)
[2018-04-26] MEDS ORDERED: Losartan 25 MG TAB PO SCH (09:00)
[2018-04-26] MEDS: HumaLOG 300 UNITS/3 ML VIAL SC PRN (11:58)
[2018-04-26] MEDS ORDERED: ALPRAZolam 1 MG TAB PO PRN (12:15)
[2018-04-26 12:45] VITALS: BP 117/64; TEMP 97.6
--- NOTE | 2018-04-26 14:19 | STRESS ---
Acquisition Time: 2018-04-24 08:21:52 Total Exercise Time: 00:01:00 Test Indications: CHEST PAIN Medications: Protocol: LEXISCAN Max HR: 109 BPM 64% of Pred: 168 BPM Max BP: 128/092 mmHG Max Work Load: 1.0 METS RESTING ECG: NORMAL SINUS RHYTHM SYMPTOMS: NONE NORMAL BP RESPONSE FOR LEXISCAN ECTOPY: NONE ECG STRESS: NO SIGNIFICANT CHANGES INTERPRETATION: AWAIT NUCLEAR IMAGES FOR DEFINTIVE DIAGNOSIS Confirmed by CRISTY MACEDO (2), marketing editor DEBRA SÁNCHEZ ([id number]) on 04/26/2018 2:19:23 PM Referred By: MD Talon DEGROOT Confirmed By:CRISTY MACEDO
--- NOTE | 2018-04-26 15:59 | DIS ---
DATE OF ADMISSION: 04/23/2018 DATE OF DISCHARGE: 04/25/2018 PRIMARY CARE PROVIDER: Sarai Chand MD DISCHARGE DIAGNOSES: 1. Chest pain. 2. Most likely musculoskeletal etiology for chest pain. CONSULTATIONS DURING THIS HOSPITALIZATION: Cardiology, Dr. Taylor. DISCHARGE MEDICATIONS: No change was made to her pre-admission home medications as dictated on my history and physical note dated April 23, 2018. HOSPITAL COURSE: Ms. Murrell is a pleasant 52-year-old lady, who was admitted to [facility] for chest pain and abdominal pain. Please refer to my history and physical note dated April 23, 2018, for further details. She was seen by Cardiology Service. She had nuclear stress test on April 24, which showed lateral wall/apical ischemia. She was seen by her fuels engineer, Dr. Aguirre. She had normal coronaries on cath in 2014. They cleared her for discharge. Many thanks for allowing me to participate in your patient's care. Please feel free to contact me with any questions or concerns. DISCHARGE DESTINATION: Home. TIME SPENT: Total amount of time spent coordinating this discharge: 33 minutes. Job ID: [id number]
[2018-04-27] MEDS ORDERED: Insulin Glargine 45 UNITS in Pre-Filled Syringe 1 EACH SC SCH (09:00)
[2018-04-27] MEDS ORDERED: Alogliptin 25 MG TAB PO SCH (09:00)
== END 2018-04-26 16:05 | disposition home or self-care (01) ==
LOC: ERS 08:53 → ERHOLD 11:20 → 2SW 13:16
PROVIDERS: ADMIT Internal Medicine; ATTEND Internal Medicine
DX: R07.89 Other chest pain (principal); R10.9 Unspecified abdominal pain; E11.9 Type 2 diabetes mellitus without complications; I10 Essential (primary) hypertension; G40.909 Epilepsy, unspecified, not intractable, without status epilepticus; J44.9 Chronic obstructive pulmonary disease, unspecified; I44.1 Atrioventricular block, second degree; F41.9 Anxiety disorder, unspecified; G89.29 Other chronic pain; M54.9 Dorsalgia, unspecified; F32.9 Major depressive disorder, single episode, unspecified; E66.9 Obesity, unspecified; Z68.41 Body mass index [BMI] 40.0-44.9, adult; Z87.891 Personal history of nicotine dependence; Z79.4 Long term (current) use of insulin; Z79.899 Other long term (current) drug therapy; Z88.5 Allergy status to narcotic agent; Z88.6 Allergy status to analgesic agent; Z88.8 Allergy status to other drugs, medicaments and biological substances; Z95.0 Presence of cardiac pacemaker
CPT/HCPCS: 36415; 36416; 71045; 74019; 78452; 80048; 80053; 80061; 82550; 83690; 83880; 84484; 85025; 90471; 90686; 93005; 93017; 94640; 94760; 96361; 96372; 96374; 96375; 96376; A9500; G0008; G0378; J1650; J1825; J2270; J2405; J2785; J7620

== ENCOUNTER 2018-08-27 05:59 | Emergency (ER) | payer OTHER ==
[2018-08-27] MEDS ORDERED: diphenhydrAMINE 50 MG/ML VIAL ONE (06:18)
[2018-08-27] MEDS ORDERED: Acetaminophen 500 MG TAB ONE (06:18)
[2018-08-27] MEDS ORDERED: Meclizine HCl 25 MG TAB ONE (06:18)
[2018-08-27] MEDS ORDERED: Metoclopramide HCl 10 MG/2 ML VIAL ONE (06:18)
[2018-08-27] MEDS ORDERED: Proparacaine 0.5% Opth 15 ML BOT ONE (06:52)
--- NOTE | 2018-08-27 07:01 | CT ---
CT HEAD WITHOUT CONTRAST: INDICATIONS: Hypertension with dizziness. COMPARISON: 03/04/2014 FINDINGS: There is no ventriculomegaly, mass effect, midline shift, or acute intracranial hemorrhage. The imag ed paranasal sinuses are clear. IMPRESSION: No acute intracranial abnormalities. POS: LOUIE
== END 2018-08-27 08:16 | disposition home or self-care (01) ==
LOC: ERS 05:59
DX: I11.0 Hypertensive heart disease with heart failure (principal); I50.9 Heart failure, unspecified; R51 Headache; J44.9 Chronic obstructive pulmonary disease, unspecified; E78.5 Hyperlipidemia, unspecified; E11.9 Type 2 diabetes mellitus without complications; F41.9 Anxiety disorder, unspecified; F32.9 Major depressive disorder, single episode, unspecified; Z87.891 Personal history of nicotine dependence; Z86.73 Personal history of transient ischemic attack (TIA), and cerebral infarction without residual deficits; Z79.899 Other long term (current) drug therapy
CPT/HCPCS: 70450; 96361; 96374; 96375; J1200; J2765; J8499

== ENCOUNTER 2018-11-15 09:42 | Observation (INO) | payer OTHER ==
--- NOTE | 2018-11-15 10:14 | RAD ---
FRONTAL RADIOGRAPH CHEST: DATE: 12/03/2018. COMPARISON: 04/23/2018. HISTORY: Body aches with malaise and cough. FINDINGS: Stable prominence of the cardiac silhouette and dual-lead transvenous pacing device. Lungs are clear . IMPRESSION: No acute findings. POS: OFF
[2018-11-15 10:21] LABS: #Eosinphils 0.1 thou/uL (0.0-0.7); #Lymphocytes 2.1 thou/uL (1.20-3.40); #Monocytes 0.4 thou/uL (0.11-0.59); %Basophils 0.2 % (0.0-1.0); %Eosinophils 2.3 % (0.0-10.0); %Lymphocytes 37.6 % (21.0-51.0); %Monocytes 7.1 % (0.0-10.0); %Neutrophils 52.9 % (42.0-75.0); Hemoglobin 13.8 g/dL (12.0-16.0); Mean Corpuscular HGB CONC 32.8 g/dL (32.0-36.0); Mean Corpuscular Hemoglobin 29.6 pg (27.0-31.0); Mean Corpuscular Volume 90.4 fL (78.0-98.0); Mean Platelet Volume 8.5 fL (7.4-10.4); Platelet Count 215 thou/uL (130-400); RBC Distribution Width 12.4 % (11.5-14.5); Red Blood Cell (RBC) Count 4.67 mill/uL (4.20-5.40); White Blood Cell (WBC) Count 5.7 thou/uL (4.8-10.8)
[2018-11-15 10:36] LABS: Lactic Acid 1.4 mmol/L (0.5-2.2)
[2018-11-15 10:39] LABS: ALT (SGPT) 26 U/L (8-55); AST (SGOT) 13 U/L (5-34); Albumin 4.2 g/dL (3.5-5.0); Alkaline Phosphatase 100 U/L (40-150); Anion Gap 12 mmol/L (10-20); BUN (Urea Nitrogen) 13 mg/dL (9.8-20.1); Bilirubin, Total 0.4 mg/dL (0.2-1.2); CK (CPK) 86 U/L (29-168); Calc. Creatinine Clearance 0 mL/min (70-130); Calcium 9.3 mg/dL (7.8-10.44); Carbon Dioxide 25 mmol/L (22-29); Chloride 104 mmol/L (98-107); Estimated GFR-MDRD Greater than 90; Globulin 3.2 g/dL (2.4-3.5); Glucose 247 mg/dL (70-105); Potassium 3.7 mmol/L (3.5-5.1); Protein, Total 7.4 g/dL (6.0-8.3); Sodium 137 mmol/L (136-145)
[2018-11-15] MEDS ORDERED: Albuterol Sulfate 2.5 mg/3 ml Neb ONE (10:57)
[2018-11-15] MEDS ORDERED: Albuterol Sulfate 2.5 mg/0.5 ml Neb ONE (10:57)
[2018-11-15] MEDS ORDERED: Morphine 2 MG/ML SYRINGE ONE (10:58)
[2018-11-15] MEDS ORDERED: methylPREDNISolone Sod Succ/PF 125 MG/2 ML VIAL ONE (10:59)
[2018-11-15] MEDS ORDERED: Ondansetron PF 4 MG/2 ML Vial ONE (10:59)
[2018-11-15] MEDS ORDERED: Furosemide 40 MG/4 ML VIAL ONE (10:59)
[2018-11-15 11:11] LABS: Actual Bicarbonate (HCO3a) 27.4 mEq/L (22-28); Analyzer IN Cardio ER; Base Excess (BEa) 2.1 mEq/L (-2.0 to +3.0); CO2 Tension 45.2 mmHg (35.0-45.0); Calcium, Ionized 1.22 mmol/L (1.12-1.30); O2 Tension (PaO2) 91.8 mmHg (80.0-100.0); Potassium - ABG Lab 3.69 mmol/L (3.70-5.30)
[2018-11-15 11:15] LABS: Puncture Site RRA
[2018-11-15 12:35] LABS: Bilirubin Negative (Negative); Blood, Urine Negative (Negative); Clarity Clear (Clear); Glucose, Urine (Dipstick) 50 mg/dL (Negative); Leukocyte Negative Leu/uL (Negative); Nitrite Negative (Negative); Protein, Urine (Dipstick) Negative (Neg-Trace); Urobilinogen Normal mg/dL (Less than 2)
--- NOTE | 2018-11-15 12:38 | CT ---
EXAM: CT angiogram of the chest including 3-D rendering: HISTORY: Asthma, shortness of breath, history of congestive heart failure COMPARISON: None FINDINGS: There is adequate opacification of the pulmonary arteries. No evidence for aortic aneurysm or dissection. No convincing CT evidence for acute pulmonary embolism. Minimal posterior pleural-based parenchymal changes evidence for subsegmental atelectasis and/or depe ndent positioning. No evidence for mediastinal mass or adenopathy. No evidence for pleural or pericardial effusion. The visualized upper abdomen is unremarkable. IMPRESSION: No convincing CT evidence for acute pulmonary embolism.
[2018-11-15] MEDS ORDERED: ISOVUE-370 76%-LOCM 1 ML ONE (13:12)
[2018-11-15] MEDS ORDERED: Ondansetron ODT 4 MG TAB SL PRN (13:27)
[2018-11-15] MEDS ORDERED: Ondansetron PF 4 MG/2 ML Vial IVP PRN (13:27)
[2018-11-15 13:40] LABS: Troponin I Less than 0.010 ng/mL (< 0.028)
[2018-11-15 13:43] VITALS: BMI 42.0
[2018-11-15] MEDS ORDERED: Dextrose 50% Abboject 50 ML SYRINGE SLOW IVP PRN (14:38)
[2018-11-15] MEDS ORDERED: Acetaminophen 325 MG TAB PO PRN (14:38)
[2018-11-15] MEDS ORDERED: Dextrose 5% in Water 1,000 ML IV PRN (14:38)
[2018-11-15] MEDS ORDERED: cefTRIAXone\\ROCEPHIN 2 GM in Sodium Chloride 0.9% 100 ML IVPB SCH (17:00)
[2018-11-15] MEDS: cefTRIAXone\\ROCEPHIN 2 GM in Sodium Chloride 0.9% 100 ML IVPB SCH (17:15)
[2018-11-15] MEDS: Benzonatate 100 MG CAP PO SCH ×2 (17:15→21:15)
[2018-11-15] MEDS: HumaLOG 300 UNITS/3 ML VIAL SC PRN ×2 (17:16→21:17)
[2018-11-15] MEDS: methylPREDNISolone Sod Succ 40 MG VIAL IVP SCH ×2 (17:16→21:16)
[2018-11-15] MEDS: Cyclobenzaprine 10 MG TAB PO PRN (17:20)
[2018-11-15] MEDS: Azithromycin 500 MG in Sodium Chloride 0.9% 250 ML 250 ML IVPB SCH (18:00)
[2018-11-15] MEDS: Mometasone/Formoterol 120 PUFF INHALER INH SCH (19:15)
[2018-11-15] MEDS ORDERED: Non-Formulary Item 1 EACH (Insulin Detemir 100 Units/Ml [Levemir] 45 UNIT) SQ SCH (21:00)
[2018-11-15] MEDS: Zolpidem Tartrate 5 MG TAB PO SCH (21:15)
[2018-11-15] MEDS: guaiFENesin/DM ER PO SCH (21:15)
[2018-11-15] MEDS: Famotidine/PF 20 mg/2ml Vial SLOW IVP SCH (21:16)
[2018-11-15] MEDS: levETIRAcetam 500 MG TAB PO SCH (21:21)
[2018-11-15] MEDS: Insulin Glargine 45 UNITS in Pre-Filled Syringe 1 EACH SC SCH (22:00)
--- NOTE | 2018-11-15 22:47 | HP ---
PRIMARY CARE PHYSICIAN: Dr. Chand. CHIEF COMPLAINT: Cough, shortness of breath, and malaise. HISTORY OF PRESENT ILLNESS: Ms. Murrell is a 53-year-old female, with past medical history of second-degree AV block, status post pacemaker placement, hypertension, anxiety disorder, chronic obstructive pulmonary disease, insulin-requiring diabetes mellitus type 2, chronic back pain, seizure disorder, chronic headaches, and depression, who had presented to [facility] earlier today after she experienced some cough, shortness of breath, and generalized malaise that started late last night. She states that she had coughed throughout the night and had become short of breath, she had also noticed wheezing. She states that she sees Dr. Aguirre for her block chopper hand. She had denied any fever, chills, any headache, blurred vision or dizziness, any chest pain or palpitations, abdominal pain, numbness or tingling down her upper or lower extremities. She, however, did state that she was having a cough with some shortness of breath that was worse with activity, wheezing, nausea, and vomiting x1 episode. During her visit in the emergency department, she was treated with IV morphine for her pain, IV methylprednisolone 125 mg, 40 mg of IV furosemide, 4 mg Zofran, albuterol and DuoNeb nebulizer treatment, which had helped with her symptoms. She underwent a portable chest x-ray, which was found to be negative. She also underwent CTA of the chest due to a slightly elevated D-dimer. However, CTA showed no CT evidence of acute pulmonary embolism, she was stabilized and she had remained on room air and saturating well. Therefore, she was transferred to the floor for further workup. REVIEW OF SYSTEMS: All other systems were reviewed and found to be negative unless mentioned in the HPI. PAST MEDICAL HISTORY: Hypertension, hyperlipidemia, diabetes mellitus type 2, chronic obstructive pulmonary disease, generalized seizure disorder, chronic heart failure, and previous TIA. PAST SURGICAL HISTORY: Right wrist, hysterectomy, and pacemaker implantation in March 2014. PSYCHIATRIC HISTORY: Includes anxiety, depression, which includes a previous inpatient psychiatric admission at the age of 13. SOCIAL HISTORY: The patient denies alcohol use; however, does report tobacco abuse and smokes about a half packet a day and she denies any illicit drug use. KNOWN ALLERGIES: Aspirin, Darvocet, ibuprofen, Tegretol, tramadol, and Zoloft. CURRENT HOME MEDICATIONS: 1. Xanax 1 mg 3 times daily. 2. Advair HFA 1 puff 2 times daily. 3. Glucotrol 10 mg daily. 4. Humalog insulin as needed. 5. Levemir 45 units twice daily. 6. Cozaar 25 mg daily. 7. Protonix 40 mg daily. 8. Ambien 10 mg oral at bedtime. 9. Cyclobenzaprine 5 mg oral 3 times daily as needed for muscle spasm. 10. DuoNebs p.r.n. 11. Topamax 100 mg twice daily. PHYSICAL EXAMINATION: VITAL SIGNS: BP 133/76, pulse 102, respirations 22, temperature 97.1, O2 saturation 96% on room air. GENERAL: The patient is awake, alert, and oriented x3. She is currently lying comfortably in bed, with her family at bedside and she appears in no acute distress at this time. HEENT: Atraumatic, normocephalic. Pupils are round and reactive to light. Extraocular muscles intact. Moist mucous membranes noted. NECK: Soft and supple. Trachea midline. CARDIOVASCULAR: Positive S1 and S2. Regular rate and rhythm. No murmur auscultated. RESPIRATORY: [id number] expiratory wheezing noted bilaterally. ABDOMEN: Soft, nontender. Bowel sounds present. MUSCULOSKELETAL: Strength 5+ bilaterally. Moves all extremities equal. No edema noted. NEUROLOGIC: Cranial nerves 2 through 12 grossly intact. No focal deficits noted. Speech intact and normal. Gait not assessed. SKIN: Warm, dry, and intact. No rashes. No ulceration noted. PSYCHIATRIC: Good mood and affect. LABORATORY DATA: WBC 5.7, RBC 4.67, hemoglobin 13.8, platelet 215. D-dimer 0.55. Sodium 137, potassium 3.7, anion gap 12, BUN 13, creatinine 0.74, estimated GFR greater than 90, glucose 247. Lactic acid 1.4. Troponin less than 0.010. BNP less than 10. Urinalysis unremarkable. DIAGNOSTIC IMAGING: Portable chest x-ray showed no acute findings. CTA of chest revealed no CT evidence of acute pulmonary embolism. ASSESSMENT AND PLAN: 1. Chronic obstructive pulmonary disease exacerbation. The patient will be started on IV ceftriaxone and azithromycin for coverage. She will also be treated with IV Solu-Medrol 40 mg q.6 hours along with p.r.n. DuoNeb treatments. She will also be restarted on her home regimen at this time. Check a viral respiratory panel. 2. Hypertension. Continue home regimen. 3. Hyperlipidemia. 4. Diabetes mellitus type 2, we will restart on her home regimen including long-acting 45 units twice daily along with insulin sliding scale with frequent Accu-Cheks. She will also be restarted on her home regimen of glipizide 10 mg daily. 5. History of seizure disorder. Continue home regimen after we verified her home medications. 6. Deep venous thrombosis and gastrointestinal prophylaxis. 7. Code status is full code. DISPOSITION: The patient will likely be discharged home in the next 1 to 2 days when she is feeling better and she will have close outpatient followup likely from her PCP. Job ID: [id number]
[2018-11-16] MEDS: methylPREDNISolone Sod Succ 40 MG VIAL IVP SCH (04:19)
[2018-11-16 06:00] LABS: #Lymphocytes 1.2 thou/uL (1.20-3.40); #Monocytes 0.3 thou/uL (0.11-0.59); #Neutrophils 8.5 thou/uL (1.40-6.50); %Basophils 0.2 % (0.0-1.0); %Eosinophils 0.1 % (0.0-10.0); %Lymphocytes 12.3 % (21.0-51.0); %Neutrophils 84.4 % (42.0-75.0); Hemoglobin 14.5 g/dL (12.0-16.0); Mean Corpuscular HGB CONC 33.9 g/dL (32.0-36.0); Mean Corpuscular Hemoglobin 30.1 pg (27.0-31.0); Mean Corpuscular Volume 88.9 fL (78.0-98.0); Mean Platelet Volume 9.1 fL (7.4-10.4); Platelet Count 204 thou/uL (130-400); RBC Distribution Width 12.5 % (11.5-14.5); Red Blood Cell (RBC) Count 4.81 mill/uL (4.20-5.40); White Blood Cell (WBC) Count 10.1 thou/uL (4.8-10.8)
[2018-11-16 06:22] LABS: Anion Gap 13 mmol/L (10-20); BUN (Urea Nitrogen) 23 mg/dL (9.8-20.1); Calc. Creatinine Clearance 140 mL/min (70-130); Calcium 10.2 mg/dL (7.8-10.44); Carbon Dioxide 24 mmol/L (22-29); Chloride 101 mmol/L (98-107); Estimated GFR-MDRD 86; Glucose 354 mg/dL (70-105); Potassium 3.8 mmol/L (3.5-5.1); Sodium 134 mmol/L (136-145)
[2018-11-16] MEDS: Mometasone/Formoterol 120 PUFF INHALER INH SCH (06:54)
[2018-11-16] MEDS: guaiFENesin/DM ER PO SCH ×2 (09:38→21:03)
[2018-11-16] MEDS: glipiZIDE 10 MG TAB PO SCH (09:40)
[2018-11-16] MEDS: levETIRAcetam 500 MG TAB PO SCH ×2 (09:40→21:03)
[2018-11-16] MEDS: Benzonatate 100 MG CAP PO SCH ×3 (09:40→21:03)
[2018-11-16] MEDS: Famotidine/PF 20 mg/2ml Vial SLOW IVP SCH ×2 (09:40→21:04)
[2018-11-16] MEDS: Losartan 25 MG TAB PO SCH (09:41)
[2018-11-16] MEDS: Alogliptin 25 MG TAB PO SCH (09:41)
[2018-11-16] MEDS: Enoxaparin Sodium 40 MG/0.4 ML SYRINGE SC SCH (09:42)
[2018-11-16] MEDS: Zonisamide 100 MG CAP PO SCH (09:43)
[2018-11-16] MEDS: ALPRAZolam 1 MG TAB PO PRN (09:45)
[2018-11-16] MEDS: Insulin Glargine 45 UNITS in Pre-Filled Syringe 1 EACH SC SCH ×2 (09:45→21:19)
[2018-11-16] MEDS: HumaLOG 300 UNITS/3 ML VIAL SC PRN ×3 (11:37→21:17)
--- NOTE | 2018-11-16 12:56 | PDOC.HOSPP ---
- Subjective Encounter Date: 11/16/18 Encounter Time: 12:53 Subjective: Continued SOB, tired - Objective Vital Signs & Weight: Vital Signs (12 hours) Temp Pulse Resp BP Pulse Ox 11/16/18 11:31 97.6 F 103 H 20 126/76 95 11/16/18 07:08 98.1 F 102 H 20 140/72 95 11/16/18 06:54 95 18 98 11/16/18 04:27 97.6 F 101 H 16 142/79 H 99 Weight Weight 253 lb I&O: 11/15/18 11/16/18 11/17/18 06:59 06:59 06:59 Intake Total 580 Output Total 900 Balance -320 Result Diagrams: 11/16/18 05:28 11/16/18 05:28 Additional Labs: Accuchecks 11/16/18 11/15/18 11/15/18 10:52 20:42 17:03 POC Glucose 360 H 414 H 338 H Hospitalist ROS - Medication Medications: Active Medications Generic Name Dose Route Start Last Admin Trade Name Fre PRN Reason Stop Dose Admin Alogliptin Benzoate 25 mg 11/16/18 09:00 11/16/18 09:41 Alogliptin PO 25 mg DAILY ADDISON Administration Alprazolam 2 mg 11/15/18 15:13 11/16/18 09:45 Xanax PO 2 mg TIDPRN PRN Administration Anxiety Benzonatate 200 mg 11/15/18 15:00 11/16/18 09:40 Tessalon PO 200 mg TID ADDISON Administration Cyclobenzaprine HCl 5 mg 11/15/18 16:17 11/15/18 17:20 Flexeril PO 5 mg TIDPRN PRN Administration Muscle Spasm Enoxaparin Sodium 40 mg 11/16/18 09:00 11/16/18 09:42 Lovenox SC 40 mg 0900 ADDISON Administration Famotidine 20 mg 11/15/18 21:00 11/16/18 09:40 Pepcid SLOW IVP 20 mg Q12HR ADDISON Administration Glipizide 10 mg 11/16/18 07:30 11/16/18 09:40 Glucotrol PO 10 mg DAILY-AC ADDISON Administration Guaifenesin/Dextromethorphan 2 tab 11/15/18 21:00 09/03/19 09:38 Mucinex Dm PO 2 tab Q12HR ADDISON Administration Azithromycin 500 mg/ Sodium 250 mls @ 250 mls/hr 11/15/18 18:00 11/15/18 18: 00 Chloride IVPB 250 mls 1800 ADDISON Administration Insulin Glargine 45 units/ 0.45 mls @ 0 mls/hr 11/15/18 21:00 11/15/18 22:00 Miscellaneous Medication SC 0.45 mls HS ADDISON Administration Insulin Glargine 45 units/ 0.45 mls @ 0 mls/hr 11/16/18 09:00 11/16/18 09:45 Miscellaneous Medication SC 0.45 mls QAM ADDISON Administration Ceftriaxone Sodium 2 gm/ 100 mls @ 200 mls/hr 11/15/18 17:00 11/15/18 17:15 Sodium Chloride IVPB 100 mls 1700 ADDISON Administration Insulin Human Lispro 0 units 11/15/18 14:38 11/16/18 11:37 Humalog SC 6 unit .MILD SLIDING SCALE PRN Administration Mild Correctional Scale Insulin Human Lispro 0 units 11/15/18 14:38 11/15/18 21:17 Humalog SC 5 unit .BEDTIME SLIDING SC PRN Administration Bedtime Correctional Scale Levetiracetam 500 mg 11/15/18 21:00 11/16/18 09:40 Keppra PO 500 mg BID ADDISON Administration Losartan Potassium 50 mg 11/16/18 09:00 11/16/18 09:41 Cozaar PO 50 mg DAILY ADDISON Administration Zolpidem Tartrate 20 mg 11/15/18 21:00 11/15/18 21:15 Ambien PO 20 mg HS ADDISON Administration Zonisamide 100 mg 11/16/18 09:00 11/16/18 09:43 Zonisamide PO 100 mg DAILY ADDISON Administration - Exam General Appearance: awake alert, ill appearing Eye: PERRL, anicteric sclera ENT: normocephalic atraumatic, no oropharyngeal lesions, moist mucosa Neck: supple, symmetric, no JVD, no thyromegaly Heart: RRR, no murmur, no gallops, no rubs, normal peripheral pulses Respiratory: wheezes Gastrointestinal: soft, non-tender, non-distended, normal bowel sounds, no palpable masses Extremities: no cyanosis, no clubbing, no edema Skin: normal turgor, no lesions, no rashes Neurological: CN's grossly intact, normal sensation to touch, no weakness, no focal deficits Hosp A/P (1) Acute exacerbation of COPD with asthma Code(s): J44.1 - CHRONIC OBSTRUCTIVE PULMONARY DISEASE W (ACUTE) EXACERBATION; J45.901 - UNSPECIFIED ASTHMA WITH (ACUTE) EXACERBATION Status: Acute (2) Acute respiratory insufficiency Code(s): R06.89 - OTHER ABNORMALITIES OF BREATHING Status: Acute (3) Diabetes Code(s): E11.9 - TYPE 2 DIABETES MELLITUS WITHOUT COMPLICATIONS Status: Chronic (4) Hypertension Code(s): I10 - ESSENTIAL (PRIMARY) HYPERTENSION Status: Chronic (5) Morbid obesity Code(s): E66.01 - MORBID (SEVERE) OBESITY DUE TO EXCESS CALORIES Status: Chronic (6) Seizure disorder Code(s): G40.909 - EPILEPSY, UNSP, NOT INTRACTABLE, WITHOUT STATUS EPILEPTICUS Status: Chronic - Plan Admitted patient for COPD exacerbation --Viral and flu panel negative --Continue with Azithromycin ceftrioxone IV --IV steroids, nebs, NC oxygen DM: --Continue home insulin, PO meds with SS and accuchecks --Increased Blood sugar with IV steroids HTN --Continue home meds Seizure: --Continue Keppra
[2018-11-16] MEDS: methylPREDNISolone Sod Succ/PF 125 MG/2 ML VIAL IVP SCH ×2 (14:06→21:09)
[2018-11-16] MEDS: cefTRIAXone\\ROCEPHIN 2 GM in Sodium Chloride 0.9% 100 ML IVPB SCH (17:20)
[2018-11-16] MEDS: Cyclobenzaprine 10 MG TAB PO PRN (17:24)
[2018-11-16] MEDS: Azithromycin 500 MG in Sodium Chloride 0.9% 250 ML 250 ML IVPB SCH (19:13)
[2018-11-16] MEDS: Budesonide 0.5 MG/2 ML NEB INH SCH (20:09)
[2018-11-16] MEDS: Zolpidem Tartrate 5 MG TAB PO SCH (21:03)
[2018-11-17] MEDS: methylPREDNISolone Sod Succ/PF 125 MG/2 ML VIAL IVP SCH ×2 (05:37→14:48)
[2018-11-17] MEDS: HumaLOG 300 UNITS/3 ML VIAL SC PRN ×2 (05:46→11:45)
[2018-11-17] MEDS: Cyclobenzaprine 10 MG TAB PO PRN (06:41)
[2018-11-17] MEDS: ALPRAZolam 1 MG TAB PO PRN (06:41)
[2018-11-17] MEDS: Budesonide 0.5 MG/2 ML NEB INH SCH (07:49)
[2018-11-17] MEDS: Famotidine/PF 20 mg/2ml Vial SLOW IVP SCH (09:45)
[2018-11-17] MEDS: Alogliptin 25 MG TAB PO SCH (09:45)
[2018-11-17] MEDS: glipiZIDE 10 MG TAB PO SCH (09:45)
[2018-11-17] MEDS: Benzonatate 100 MG CAP PO SCH ×2 (09:45→15:26)
[2018-11-17] MEDS: Enoxaparin Sodium 40 MG/0.4 ML SYRINGE SC SCH (09:45)
[2018-11-17] MEDS: guaiFENesin/DM ER PO SCH (09:45)
[2018-11-17] MEDS: levETIRAcetam 500 MG TAB PO SCH (09:46)
[2018-11-17] MEDS: Insulin Glargine 45 UNITS in Pre-Filled Syringe 1 EACH SC SCH (09:46)
[2018-11-17] MEDS: Losartan 25 MG TAB PO SCH (09:46)
[2018-11-17] MEDS: Zonisamide 100 MG CAP PO SCH (09:47)
[2018-11-17 11:55] VITALS: BP 137/84; TEMP 98.2
--- NOTE | 2018-11-18 06:11 | DIS ---
DATE OF ADMISSION: 11/15/2018 DATE OF DISCHARGE: 11/17/2018 PRIMARY CARE PHYSICIAN: Dr. Chand. CHIEF COMPLAINT: Cough/shortness of breath/malaise. REASON FOR ADMISSION: COPD with acute exacerbation. DISCHARGE DIAGNOSES: 1. Chronic obstructive pulmonary disease with acute exacerbation. 2. Hyperglycemia secondary to steroids. 3. Hypertension. 4. Dyslipidemia. 5. Type 2 diabetes, insulin dependent. 6. History of seizure disorder, stable on current home medications. HOSPITAL COURSE: Ms. Murrell is a very pleasant 53-year-old female, history of previous pacemaker placement for second-degree AV block, as well as essential hypertension, anxiety, COPD, type 2 diabetes requiring insulin, chronic back pain, seizure disorder, presently well controlled, as well as depression, presenting on this occasion for cough, dyspnea and general malaise beginning the night prior. She noted worsening cough the night prior, with interval development of dyspnea and wheezing. Chest x-ray upon ER arrival noted to be negative for evidence of infiltrate. CT angiogram showed no evidence of pulmonary embolism. She was placed on observation, for additional evaluation and care. Ms. Murrell improved with nebulizers/steroids/supportive care. At the time of my evaluation, 11/17/2018, the patient has returned to her baseline. She is stable on room air. At home, she has a nebulizer machine, has plenty of albuterol, also has a rescue inhaler available to her. PHYSICAL EXAMINATION: LUNGS: With good aeration bilaterally, stable bilateral breath sounds. No oral thrush. HEART: Regular rate and rhythm without murmurs/rubs/gallops. DISCHARGE MEDICATIONS: 1. Tessalon Perles 200 mg p.o. t.i.d. p.r.n. cough. 2. Prednisone 10 mg p.o. tablets, one tablet twice daily for 2 days, then stop. 3. Venlafaxine 37.5 mg capsules, takes 2 tablets p.o. twice daily. 4. Ambien 10 mg p.o. at bedtime p.r.n. sleep. 5. Zonisamide 100 mg p.o. once daily. 6. Pantoprazole 40 mg p.o. once daily. 7. Losartan 50 mg p.o. once daily. 8. Linagliptin 5 mg p.o. once daily. 9. Keppra 500 mg tablets, takes 1-1/2 tablet p.o. b.i.d. 10. Levemir 50 units subcutaneously twice daily. 11. [place] 10/325 one p.o. q.6 hours p.r.n. pain. 12. Humalog sliding scale as directed. 13. Advair HFA 2 puffs twice daily. 14. Bydureon 2 mg subcu once weekly on Thursday. 15. Xanax 0.25 mg tablets one p.o. daily p.r.n. anxiety. 16. ProAir HFA 2 puffs inhaled q.6 hours hourly p.r.n. shortness of breath. DIET: Diabetic. ACTIVITY: As tolerated. FOLLOWUP: Follow up with Dr. Chand, in 2 weeks. CONDITION ON DISCHARGE: Improved. TIME SPENT ON DISCHARGE PLANNIN minutes. Job ID: [id number]
--- NOTE | 2018-11-20 23:17 | EKG ---
Test Reason : Blood Pressure : / mmHG Vent. Rate : 105 BPM Atrial Rate : 105 BPM P-R Int : 146 ms QRS Dur : 092 ms QT Int : 362 ms P-R-T Axes : 042 000 017 degrees QTc Int : 478 ms Sinus tachycardia Moderate voltage criteria for LVH, may be normal variant Borderline ECG Confirmed by MARIANO DOWNING ([id number]), art editor SHER BENTON ([id number]) on 11/20/2018 11:16:50 PM Referred By: Confirmed By:MARIANO DOWNING
== END 2018-11-17 16:06 | disposition home or self-care (01) ==
LOC: ERS 09:42 → 2SW 12:08
PROVIDERS: ADMIT Family Medicine; ATTEND Family Medicine
DX: J44.1 Chronic obstructive pulmonary disease with (acute) exacerbation (principal); E11.65 Type 2 diabetes mellitus with hyperglycemia; T38.0X5A Adverse effect of glucocorticoids and synthetic analogues, initial encounter; I11.0 Hypertensive heart disease with heart failure; I50.9 Heart failure, unspecified; E78.5 Hyperlipidemia, unspecified; G40.409 Other generalized epilepsy and epileptic syndromes, not intractable, without status epilepticus; I44.1 Atrioventricular block, second degree; F41.9 Anxiety disorder, unspecified; J44.9 Chronic obstructive pulmonary disease, unspecified; G89.29 Other chronic pain; M54.9 Dorsalgia, unspecified; R51 Headache; F32.9 Major depressive disorder, single episode, unspecified; F17.210 Nicotine dependence, cigarettes, uncomplicated; J45.901 Unspecified asthma with (acute) exacerbation; E66.01 Morbid (severe) obesity due to excess calories; Z68.41 Body mass index [BMI] 40.0-44.9, adult; Z79.4 Long term (current) use of insulin; Z86.73 Personal history of transient ischemic attack (TIA), and cerebral infarction without residual deficits; Z79.899 Other long term (current) drug therapy; Z88.6 Allergy status to analgesic agent; Z88.8 Allergy status to other drugs, medicaments and biological substances; Z95.0 Presence of cardiac pacemaker
CPT/HCPCS: 36415; 36416; 71045; 71275; 80048; 80053; 81003; 82550; 82805; 83605; 83880; 84146; 84484; 85025; 85379; 87633; 87804; 93005; 94640; 96365; 96366; 96367; 96372; 96374; 96375; 96376; G0378; J0456; J0696; J1650; J1815; J1940; J2270; J2405; J2920; J2930; J3490; J7050; J7611; J7620; J7626; Q9966; S0028

== ENCOUNTER 2019-02-01 07:35 | Outpatient (CLI) | payer OTHER ==
--- NOTE | 2019-02-01 08:26 | MMO ---
Bilateral MAMMO Bilat Screen [facility]. CLINICAL HISTORY: Patient is 53 years old and is seen for screening. The patient has the following family history of breast cancer: aunt. The patient has no personal history of cancer. VIEWS: The views performed were: bilateral craniocaudal and bilateral mediolateral oblique. FILMS COMPARED: The present examination has been compared to prior imaging studies performed at [facility] on 07/09/2009, 12/08/2012 and 04/24/2017. This study has been interpreted with the assistance of computer-aided detection. MAMMOGRAM FINDINGS: There are scattered fibroglandular densities. There are no suspicious masses, suspicious calcifications, or new areas of architectural distortion. IMPRESSION: THERE IS NO MAMMOGRAPHIC EVIDENCE OF MALIGNANCY. A ROUTINE FOLLOW-UP MAMMOGRAM IN 1 YEAR IS RECOMMENDED. ACR BI-RADS Category 1 - Negative MAMMOGRAPHY NOTE: 1. A negative mammogram report should not delay a biopsy if a dominant of clinically suspicious mass is present. 2. Approximately 10% to 15% of breast cancers are not detected by mammography. 3. Adenosis and dense breasts may obscure an underlying neoplasm. Reported by: LISBETH FRANCOIS MD Electonically Signed: [id number]
== END 2019-02-01 07:36 | disposition home or self-care (01) ==
LOC: BICMAMMO 07:35
PROVIDERS: ATTEND Family Medicine
DX: Z12.31 Encounter for screening mammogram for malignant neoplasm of breast (principal); Z80.3 Family history of malignant neoplasm of breast
CPT/HCPCS: 77067

== ENCOUNTER 2019-04-20 07:26 | Day surgery (SDC) | payer OTHER ==
[2019-04-19 09:55] VITALS: BMI 44.8
[2019-04-20] MEDS ORDERED: Albuterol Sulfate 2.5 mg/3 ml Neb ONE (08:52)
[2019-04-20] MEDS ORDERED: Labetalol HCl 100 MG/20 ML VIAL ONE (08:52)
[2019-04-20 09:10] LABS: Hemoglobin A1c 10.1 % (4.0-6.0)
[2019-04-20] MEDS ORDERED: PROPOFOL 200 MG/20 ML VIAL ONE (10:13)
[2019-04-20] MEDS ORDERED: Lidocaine 1% PF 5 ML VIAL ONE (10:13)
--- NOTE | 2019-04-20 12:59 | OP ---
DATE OF PROCEDURE: 04/20/2019 PROCEDURE PERFORMED: Esophagogastroduodenoscopy with [place] dilatation and biopsy. PREMEDICATION: Given by Anesthesiology Department. PREPROCEDURE DIAGNOSES: 1. Dysphagia. 2. Gastroesophageal reflux disease. POSTPROCEDURE DIAGNOSES: 1. LA grade B erosive esophagitis. 2. Status post empiric dilatation of esophagus. 3. Whitish plaques scattered in the mid esophagus, rule out candidiasis. 4. Normal stomach and duodenum. DESCRIPTION OF PROCEDURE: Written consents were obtained prior to procedure. After adequate sedation, the forward-viewing endoscope was advanced down the stomach under direct vision to the second portion of duodenum. The duodenum appeared normal. The stomach appeared normal. The pylorus was patent. Retroflexion did not show any abnormality. The GE junction was located at 40 cm from the incisors. LA grade B erosive esophagitis was seen in the lower esophagus. No tight stricture was encountered. The esophagus was empirically dilated with 54-[place] with mild resistance. Repeat endoscopy did not show any complication. Scattered whitish plaques were noted in the mid and distal esophagus. Biopsies were obtained to rule out candidiasis. The stomach was then decompressed, the instruments were then fully removed. The patient tolerated the procedure well. ASSESSMENT: 1. LA grade B erosive esophagitis. 2. Status post empiric dilatation of the esophagus with 54-[place]. 3. Suspect esophageal candidiasis. RECOMMENDATIONS: 1. Await biopsy results. 2. Fluconazole 100 mg daily x7 days. 3. Pantoprazole 40 mg oral q.a.m. 4. Follow up in office. Job ID: [id number]
== END 2019-04-20 12:02 | disposition home or self-care (01) ==
LOC: SDC 07:26
PROVIDERS: ATTEND Internal Medicine Gastroenterology
PROC: 0DB58ZX Excision of Esophagus, Via Natural or Artificial Opening Endoscopic, Diagnostic (ICD-10-PCS; principal; 2019-04-20)
PROC: 0D753ZZ Dilation of Esophagus, Percutaneous Approach (ICD-10-PCS; principal; 2019-04-20)
DX: K21.0 Gastro-esophageal reflux disease with esophagitis (principal); B37.81 Candidal esophagitis; I11.0 Hypertensive heart disease with heart failure; I50.9 Heart failure, unspecified; E11.65 Type 2 diabetes mellitus with hyperglycemia; J44.9 Chronic obstructive pulmonary disease, unspecified; F32.9 Major depressive disorder, single episode, unspecified; F43.10 Post-traumatic stress disorder, unspecified; F17.290 Nicotine dependence, other tobacco product, uncomplicated; Z79.4 Long term (current) use of insulin; Z79.899 Other long term (current) drug therapy; Z88.5 Allergy status to narcotic agent; Z88.6 Allergy status to analgesic agent; Z88.8 Allergy status to other drugs, medicaments and biological substances
CPT/HCPCS: 36416; 83036; 88305; 88312; 88313; J2001; J2704; J7611

== ENCOUNTER 2019-06-25 08:23 | Emergency (ER) | payer OTHER ==
[2019-06-25 08:57] LABS: #Eosinphils 0.1 thou/uL (0.0-0.7); #Lymphocytes 1.7 thou/uL (1.20-3.40); #Monocytes 0.5 thou/uL (0.11-0.59); #Neutrophils 3.4 thou/uL (1.40-6.50); %Basophils 0.7 % (0.0-1.0); %Eosinophils 1.2 % (0.0-10.0); %Lymphocytes 30.2 % (21.0-51.0); %Monocytes 8.2 % (0.0-10.0); %Neutrophils 59.7 % (42.0-75.0); Hemoglobin 14.2 g/dL (12.0-16.0); Mean Corpuscular HGB CONC 33.8 g/dL (32.0-36.0); Mean Corpuscular Hemoglobin 31.4 pg (27.0-31.0); Mean Corpuscular Volume 92.7 fL (78.0-98.0); Mean Platelet Volume 8.5 fL (7.4-10.4); Platelet Count 212 thou/uL (130-400); RBC Distribution Width 12.2 % (11.5-14.5); Red Blood Cell (RBC) Count 4.53 mill/uL (4.20-5.40); White Blood Cell (WBC) Count 5.7 thou/uL (4.8-10.8)
[2019-06-25 09:18] LABS: ALT (SGPT) 24 U/L (8-55); AST (SGOT) 14 U/L (5-34); Albumin 4.3 g/dL (3.5-5.0); Alkaline Phosphatase 97 U/L (40-110); Anion Gap 14 mmol/L (10-20); BUN (Urea Nitrogen) 16 mg/dL (9.8-20.1); Bilirubin, Total 0.3 mg/dL (0.2-1.2); Calc. Creatinine Clearance 0 mL/min (70-130); Calcium 9.9 mg/dL (7.8-10.44); Carbon Dioxide 24 mmol/L (22-29); Chloride 105 mmol/L (98-107); Estimated GFR-MDRD Greater than 90; Globulin 3.3 g/dL (2.4-3.5); Glucose 276 mg/dL (70-105); Potassium 3.5 mmol/L (3.5-5.1); Protein, Total 7.6 g/dL (6.0-8.3); Sodium 139 mmol/L (136-145)
--- NOTE | 2019-06-25 09:36 | CT ---
CT BRAIN WITHOUT CONTRAST: HISTORY: Altered mental status and seizure. COMPARISON: 08/27/2018 TECHNIQUE: Multiple contiguous axial images were obtained in a CT of the brain without contrast. FINDINGS: The brain is normal in morphology and attenuation without focal lesions or confluent areas of infarct ion. There is no evidence of hydrocephalus, intracranial hemorrhage or extraaxial fluid collection. The calvarium and overlying soft tissues are unremarkable. The visualized paranasal sinuses and masto id air cells area well aerated. IMPRESSION: No evidence of acute intracranial abnormality. POS: C
[2019-06-25] MEDS ORDERED: Acetaminophen 500 MG TAB ONE (10:53)
== END 2019-06-25 11:02 | disposition home or self-care (01) ==
LOC: ERS 08:23
DX: R56.9 Unspecified convulsions (principal); R51 Headache; I11.0 Hypertensive heart disease with heart failure; I50.9 Heart failure, unspecified; E11.9 Type 2 diabetes mellitus without complications; E78.5 Hyperlipidemia, unspecified; E78.00 Pure hypercholesterolemia, unspecified; F32.9 Major depressive disorder, single episode, unspecified; F41.9 Anxiety disorder, unspecified; J44.9 Chronic obstructive pulmonary disease, unspecified; F17.200 Nicotine dependence, unspecified, uncomplicated; Z79.4 Long term (current) use of insulin; Z86.73 Personal history of transient ischemic attack (TIA), and cerebral infarction without residual deficits; Z79.899 Other long term (current) drug therapy
CPT/HCPCS: 70450; 80053; 80177; 85025

== ENCOUNTER 2020-12-28 08:45 | Outpatient (CLI) | payer OTHER | END 2020-12-28 08:46 | disposition home or self-care (01) | LOC: BICMAMMO 08:45 | PROVIDERS: ATTEND Family Medicine | DX: Z12.31 Encounter for screening mammogram for malignant neoplasm of breast (principal); Z80.3 Family history of malignant neoplasm of breast | CPT/HCPCS: 77067 ==